=== PATIENT | female | born 1935 | race Caucasian/White ===

== ENCOUNTER 2018-10-24 08:49 | Inpatient (IN) ==
[2018-10-24] MEDS ORDERED: ALBUT/IPRATROP 3MG/0.5MG NEB 3 ML VIAL INH STA (09:03)
[2018-10-24] MEDS ORDERED: FUROSEMIDE 80 MG in SYRINGE 0 ML IV STA (09:18)
[2018-10-24 09:38] LABS: Basophils # (auto) 0.02 K/uL (0-0.2); Basophils % (auto) 0.2 %; Eosinophils # (auto) 0.09 K/uL (0-0.5); Hematocrit (blood only) 30.1 % (37-47); Hemoglobin 8.9 g/dL (12.0-16.0); Immature Granulocytes # (auto) 0.04 K/uL (0.00-0.02); Immature Granulocytes % (auto) 0.5 %; Lymphocytes # (auto) 1.37 K/uL (1.2-3.4); Lymphocytes % (auto) 15.7 %; Mean Corpuscular Hgb Conc 29.6 g/dL (32-36); Mean Corpuscular Volume 93.8 fL (80-100); Mean Platelet Volume 9.8 fL (7.4-10.4); Monocytes # (auto) 0.76 K/uL (0.11-0.59); Monocytes % (auto) 8.7 %; Neutrophils # (auto) 6.43 K/uL (1.4-6.5); Neutrophils % (auto) 73.9 %; Platelet Count 264 K/uL (130-400); RDW Coefficient of Variation 17.8 % (11.5-14.5); RDW Standard Deviation 60.7 fL (36.4-46.3); Red Blood Count 3.21 M/uL (4.2-5.4); White Blood Count 8.71 K/uL (4.8-10.8)
--- NOTE | 2018-10-24 09:47 | XRay Report ---
XR chest 1V portable CLINICAL HISTORY: Dyspnea COMPARISON STUDY: 04/18/2018 FINDINGS: There is complete opacification of the right hemithorax. There is equivocal slight tracheal shift to the right. The findings therefore likely represent a combination of moderate loss and pleur al effusion. A CT scan of the chest is recommended in follow-up. There is mild left lung interstitial thickening. IMPRESSION: Complete opacification of the right hemithorax. A CT scan is recommended in follow-up. Electronically signed by: Festus Palma M.D. 10/24/2018 9:45 AM
[2018-10-24 09:48] LABS: INR 1.2 (0.9-1.1); Partial Thromboplastin Time 28.2 Seconds (21.0-31.0); Prothrombin Time 11.9 Seconds (9.0-12.0)
[2018-10-24 09:57] LABS: Alanine Aminotransferase 29 U/L (12-78); Albumin Level 3.1 gm/dl (3.4-5.0); Aspartate Aminotransferase 20 U/L (15-37); Blood Urea Nitrogen 29 mg/dl (7-18); Calcium 10.3 mg/dl (8.5-10.1); Carbon Dioxide 40 mmol/L (21-32); Chloride 97 mmol/L (98-107); Creatinine Clr Calc Pharmacy 38.3 ml/min; Est GFR (African American) 41.2; Est GFR (Non-African American) 35.5; Glucose 133 mg/dl (70-99); Magnesium 2.9 mg/dl (1.8-2.4); Potassium 3.2 mmol/L (3.5-5.1); Sodium 142 mmol/L (136-145)
[2018-10-24 10:05] LABS: Albumin Globulin Ratio 0.7 (0.9-2); Alkaline Phosphatase 119 U/L (45-117); Bilirubin,Total 0.5 mg/dl (0.2-1); Globulin 4.7 gm/dl (2.5-4.0); Total Protein 7.8 gm/dl (6.4-8.2); Troponin I < 0.015 ng/ml (0-0.045)
[2018-10-24 10:11] LABS: Appearance Urine Clear (Clear); Bilirubin Urine Negative (Negative); Blood Urine Negative (Negative); Color Urine Yellow; Glucose Urine UA Negative (Negative); Ketones Urine Negative (Negative); Leukocyte Esterase Urine Negative (Negative); Nitrite Urine Negative (Negative); Protein Urine Negative (Negative); Specific Gravity Urine 1.016 (1.000-1.030); Urobilinogen Urine Negative (Negative)
--- NOTE | 2018-10-24 10:39 | CT Scan Report ---
CT OF THE CHEST WITHOUT IV CONTRAST CLINICAL HISTORY: CHF, r opacification, BiPAP. COMPARISON STUDY: Chest CT January 18, 2018. Chest radiograph April 18, 2018 and October 24, 2018. TECHNIQUE: Axial images of the chest were obtained without IV contrast. Images were reviewed in the axial, sagittal, and coronal planes. IV contrast was not administered for this examination. Automat ed exposure control was utilized for the study. A dose lowering technique was utilized adhering to t he principles of ALARA. FINDINGS: Right lung collapse is noted with extensive secretions filling the mid to distal aspect of the right mainstem bronchus. Extensive secretions are noted throughout the right bronchial tree whic h fill the right middle lobe and lower lobe bronchi with minimal aeration of the upper lobe bronchi. There is no pneumothorax. Trace left and moderate right pleural effusions are noted. No central obstr ucting mass identified on this unenhanced exam. The heart is moderately enlarged. There is no pericar dial effusion. Moderate coronary artery calcification is noted. Mildly enlarged precarinal lymph node measures 1.6 cm in short axis diameter on image 105 of 281. This has increased in size since exam of January 18, 2018. Mild groundglass opacities and interlobular septal thickening within the left amber ng are noted. There is evidence for previous granulomatous process with calcified thoracic lymph node s and a left upper lobe granuloma. Old left rib fractures are noted. Mild T6 compression deformity is age indeterminate but new since CT of January 18, 2018. Suspected fatty infiltration of the liver is noted. There is trace perihepatic ascites. There is mild nodularity of the liver contour. IMPRESSION: 1. Right lung collapse. This is likely due to mucous plug given extensive secretions throughout the r ight bronchial tree. Compressive atelectasis from a moderate right pleural effusion could also result in right lung collapse however mucous plug is favored. Pulmonary consultation is recommended. 2. Mild pulmonary edema within the left lung. Trace left pleural effusion. 3. Mildly enlarged precarinal lymph node. This is probably reactive however a follow-up chest CT in 3 months to ensure resolution is recommended. 4. Moderate cardiomegaly. Moderate coronary artery calcification. 5. Trace perihepatic ascites. Electronically signed by: Mathew Ortiz M.D. 10/24/2018 10:38 AM
[2018-10-24] MEDS ORDERED: ICU PROTOCOL FOR HYPERGLYCEMIA PRN (11:50)
--- NOTE | 2018-10-24 12:12 | History & Physical Report ---
Date of Service October 24, 2018 Assessment & Plan (1) Acute and chronic respiratory failure ([id number]): (2) Bronchial obstruction: (3) Pleural effusion: This is a 82 yr old F who has a significant PMH of Chronic Respiratory Failure on 5L of O2, Chronic Diastolic CHF, Chronic Afib of OAC due to anemia and falls, HTN, HLD, T2DM, CKD -3, venous stasis dermatitis, iron def anemia who presents to [facility] ED via EMS secondary to hypoxia. Patient presented to ED with acute hypoxic respiratory failure requiring BiPAP therapy. Chest x-ray revealed right hemithorax opacification. CT of chest revealed right lung collapse secondary to extensive mucus plugging, secretions right bronchial tree, moderate right pleural effusion, moderate cardiomegaly, moderate trace perihepatic ascities Lab hemoglobin 8.9, hematocrit 30.1, W BC 8.71, platelet 264. Her sodium was 142, potassium 3.2, BUN 39, creatinine 1.38, glucose 133. Her troponin was negative. BNP was elevated at 4061, procalcitonin WNL. TSH WNL. Case discussed with associate store director/graduate fellow Dr. Moon Admit to ICU Patient underwent diagnostic and therapeutic thoracentesis - 1.1 L removed; as well as bronchoscopy secondary to mucous plugging - DX with tracheobronchomalacia type II which resulted in mucous plugging and obstruction Patient will remain in ICU under care of associate store director, please refer to their consultation for further assessment and treatment plan (4) Acute on chronic diastolic CHF (congestive heart failure): baseline weight 225-250; current weight 251 last echocardiogram 2016 EF 55 to 60%, grade 2 diastolic dysfunction Repeat echocardiogram Consult cardiology -spoke to Dr. Pak Received Lasix IV 80 mg x 1 in ED, monitor response (home regimen is lasix 80mg po bid; metolazone stopped at outpt 1 month ago) Daily weights, strict I's and O's Heart healthy low-sodium diet (5) Atrial fibrillation, chronic: Rate and rhythm controlled on diltiazem Off Coumadin secondary to iron deficiency anemia, positive FOBT Being worked up by GI as outpatient Continue aspirin for now (6) DM type 2 (diabetes mellitus, type 2): A1C 7.4 07/27/18 hold Tradjenta and glimepiride Lantus/NovoLog per protocol (7) CKD (chronic kidney disease) stage 3, GFR 30-59 ml/min: Baseline creatinine 1.1-1.3 BUN/creatinine 29/1.38 today Monitor BMP with diuresis (8) Iron deficiency anemia: Continue iron supplement; patient had IV Venofer infusion on 10/18 following with nephrology Recent upper GI colonoscopy was performed on 10/04 unrevealing for blood loss Per family plan for outpatient internal capsule study to r/o GIB (9) Hypertension: Blood pressure controlled Hold losartan secondary to n.p.o. (10) THIERNO (obstructive sleep apnea): Patient noncompliant with BiPAP, but does wear O2 via NC at 5 L (11) DVT prophylaxis: SCDS/TEDS for now pt with known iron def anemia; s/p recent UGI/Colonoscopy relatively unremarkable and no source of bleed. There is plan for capsule study as outpt will hold off chemical prophylaxis for now -monitor on daily basis Disposition: To be determined, likely back to SNF at discharge. Case management consulted Follow-up: PCP Dr. Garces upon discharge Patient was seen and examined in collaboration with Dr. Cameron, please see addendum Starting 10/25/18 patient will be under the care of Dr. Martins History of Present Illness Chief Complaint: Increasing SOB x 1 week. Primary Care Provider: Marlin Garces MD This is a 82 yr old F who has a significant PMH of Chronic Respiratory Failure on 5L of O2, Chronic Diastolic CHF, Chronic Afib of OAC due to anemia and falls, HTN, HLD, T2DM, CKD -3, venous stasis dermatitis, iron def anemia who presents to [facility] ED via EMS secondary to hypoxia. Patient called son in law this morning to help her with bipap placement. O2 noted to be in 60s; therefore EMS called. History mostly provided by Daughter given pt on bipap. She notes increased weight gain 20-30lbs in past 2-3 months. Around june weight was 225-230. Noted increased weight gain, lower extremity edema, SOB. 2-3 weeks ago patient lasix increased from lasix 80mg in a.m. and 40mg in pm to 80mg bid; however her metolazone was stopped about a month ago given concerns for her renal function. Diuretics adjusted by nephrology Dez. Due to increased weight gain and swelling daughter gave pt dose of 2.5 metolazone Tuesday and additional dose Tuesday. Also noted cough x 1 week, moist but unable to produce. Increasing SOB at rest and with exertion. Pt sleeps in recliner, unable to lie flat due to orthopnea. Physical decline from baseline. Pt ambulates with walker and is able to do simple adls on own; however, family notes increased weakness and fatigue. Of note pt has known iron def anemia. Has had recent work up by Dr. Ruelas. Had UGIB and Colonoscopy 10/04 essentially unremarkable; except for 6 polyps which were removed, diverticulosis and internal hemorrhoids. Had IV Venofer infusion on 10/18. Patient denies any dizziness, lightheaded, f/c/s, chest pain, hemoptysis, n/v/d, abdominal pain, change in bowel habits. According to family has great appetite and has been trying to limit fluid intake due to fluid accumulation. Allergies Allergy/AdvReac Type Severity Reaction Status Date / Time lisinopril Allergy Mild Cough Verified 10/24/18 10:31 PERFUMES AND DALE Allergy Mild allergy Uncoded 10/24/18 10:31 Home Medications Home Medications Medication Instructions Recorded Confirmed Type aspirin [Aspirin Low Dose] 81 mg PO HS 01/18/18 10/24/18 History atorvastatin 40 mg PO HS 01/18/18 10/24/18 History bupropion HCl 300 mg PO QAM 01/18/18 10/24/18 History digoxin 62.5 mcg PO QAM 01/18/18 10/24/18 History docusate sodium [Colace] 100 mg PO BID 01/18/18 10/24/18 History glimepiride 2 mg PO QAM 01/18/18 10/24/18 History furosemide [Lasix] 80 mg PO BID #60 tab 02/08/18 10/24/18 Rx 1 tab PO QAM 03/28/18 10/24/18 History vitamin,calcium,xknowqjs-hjwi-tddbi acid tablet Tradjenta 5 mg PO QAM 09/27/18 10/24/18 History ferrous sulfate 325 mg PO QAM 09/27/18 10/24/18 History magnesium oxide 400 mg PO BID 10/24/18 10/24/18 History albuterol sulfate [Ventolin HFA] 2 puff INHALATION Q8H PRN 30 Days 10/27/18 Rx #1 inhaler amoxicillin-pot clavulanate 1 tab PO BIDM 7 Days #14 tab 10/27/18 Rx metoprolol succinate 25 mg PO BID 30 Days #60 tab 10/27/18 Rx spironolactone 12.5 mg PO DAILY 30 Days #15 tab 10/27/18 Rx Past Med/Surg History Medical History Iron deficiency anemia (Chronic) Vitamin D deficiency (Chronic) Hyperlipidemia (Chronic) Obesity hypoventilation syndrome (Chronic) Renal lesion (Chronic) Ambulatory dysfunction (Chronic) Venous stasis ulcer of right lower extremity (Chronic) Atrial fibrillation, chronic (Chronic) DM type 2 (diabetes mellitus, type 2) (Chronic) Hypertension (Chronic) Hyperparathyroidism (Chronic) Obesity, morbid, BMI 50 or higher (Chronic) Psoriasis (Chronic) Osteoporosis (Chronic) Anxiety (Chronic) Chronic diastolic CHF (congestive heart failure) (Chronic) "echo 04/2015 - moderate LVH, EF 60-65%, grade II diastolic dysfunction" THIERNO (obstructive sleep apnea) (Chronic) oxygen 5L Chronic hypoxemic respiratory failure (Chronic) "on 5 L oxygen continuous" Anemia (Chronic) Heart failure (Chronic) Hypercholesterolemia (Chronic) Blood in stool Low kidney function On home oxygen therapy 5L oxygen at all times Surgical History S/P parathyroidectomy (Chronic) S/P tubal ligation (Chronic) History of appendectomy History of bilateral cataract extraction History of eye surgery bilt after cataract History of parathyroidectomy x2--d/t calcium issue History of thoracentesis History of tooth extraction all upper teeth Family History Father Myocardial infarction, Onset Age: 76 Mother Lung disease Other Heart disease No family history of adverse response to anesthesia Social History Preferred Language: Faroese Communication Ability: Effective Visual Impairment: No Limitations Hearing Ability: Normal Beliefs That Will Affect Care: None marital status: Current Living Situation: Alone Current Living Situation Comment: lives in apt, ambulates with walker, has Daughter and Son in law close by current occupational status: retired Feels Safe at Home: Yes Smoking Status: Former smoker Second Hand Exposure: No Hx Alcohol Use: No Hx Substance Use: No during the past year weight has: decreased > 10 lbs Review of Systems Review of Systems: Unobtainable due to reduced consciousness obtained from daughter who is POA Results & Data Vital Signs (Past 12 Hours) Vital Signs Temp Pulse Pulse Resp BP Pulse Ox 10/24/18 10:31 88 21 121/59 L 96 10/24/18 10:30 71 23 96 10/24/18 10:26 84 19 114/60 96 10/24/18 10:00 80 25 H 85 L 10/24/18 09:40 88 24 100 10/24/18 09:38 88 24 94 10/24/18 09:30 75 24 97 10/24/18 09:11 90 10/24/18 09:02 81 24 85 L 10/24/18 08:58 36.9 C 77 27 H 127/62 90 10/24/18 08:53 84 28 H 127/62 86 L Supervising Physician Co-Signing Physician Notes Pt was seen and examined. Agreed with Lanette TEJADA exam assessment and plan. 82 yr old F with PMH of Chronic Respiratory Failure on 5L of O2, Chronic Diastolic CHF, Chronic Afib of OAC, anemia and falls, HTN, HLD, T2DM, CKD -3, venous stasis dermatitis, iron def anemia who presents to [facility] ED via EMS secondary to hypoxia. As per family pt has been having worsening SOB. CXR on admission showed complete opacification of the right hemithorax. CT chest showed right lung collapse. This is likely due to mucous plug given extensive secretions throughout the right bronchial tree. Compressive atelectasis from a moderate right pleural effusion. Will admit to ICU. Continue BIPAP for now. Case discussed with associate store director who plan to bronch today; Also plan to get a thoracentesis done. Continue monitor closely. Please refer to [facility] PAT documentation for other problems MD Nisha
--- NOTE | 2018-10-24 12:30 | Emergency Department Note ---
Entered by Pallavi Benitez acting as a scribe for History of Present Illness General Chief complaint: Shortness of Breath/Dyspnea Source: patient Mode of arrival: EMS Limitations: no limitations History of Present Illness Provider complaint: SOB Onset (ago): day(s) (a few) Location: chest Pain Consistency: + other (persistent) Quality: + other (SOB) Associated symptoms: + weakness and + other (leg swelling) The patient is an 82 year old female who presents to the ER via EMS with c omplaints of persistent shortness of breath that began a few days ago. The patients son at bedside reports that the patient has a history of CHF and that she does use 5 L of oxygen via bipap at night. He states that she has been doing this since she was hospitalized in March of last year. He notes that she was then discharged and placed on Metolozone and Lasix which caused her to "lose a lot of weight." He reports that the patient was doing very well for 8 months up until about a month ago where they changed these medications out of "concern for her kidneys." He reports that these were then checked and were baseline, but that they still requested she stay on the adjusted medications. He states that since, she has gone downhill and explains that she has gained weight which they suspect is fluid and that she has not been able to get out of bed secondary to weakness. The daughter at bedside also notes that the patients hemoglobin has decreased. She reports that she did have some hematochezia some time ago but that she had an endoscopy performed which was negative. Home Medications Home Medications Medication Instructions Recorded Confirmed Type aspirin [Aspirin Low Dose] 81 mg PO 01/18/18 10/24/18 History atorvastatin 40 mg PO 01/18/18 10/24/18 History bupropion HCl 300 mg PO QA 01/18/18 10/24/18 History digoxin 62.5 mcg PO QAM 01/18/18 10/24/18 History diltiazem HCl 360 mg PO QA 01/18/18 10/24/18 History docusate sodium [Colace] 100 mg PO BID 01/18/18 10/24/18 History glimepiride 2 mg PO QAM 01/18/18 10/24/18 History losartan 25 mg PO QAM 01/18/18 10/24/18 History furosemide [Lasix] 80 mg PO BID #60 tab 02/08/18 10/24/18 Rx metolazone 2.5 mg tablet 2.5 mg PO [id number] tab 03/28/18 10/24/18 History 1 tab PO QAM 03/28/18 10/24/18 History vitamin,calcium,[id number]-rfxlh acid tablet Tradjenta 5 mg PO QAM 09/27/18 10/24/18 History ferrous sulfate 325 mg PO QAM 09/27/18 10/24/18 History magnesium oxide 400 mg PO BID 10/24/18 10/24/18 History Allergies Allergy/AdvReac Type Severity Reaction Status Date / Time lisinopril Allergy Mild Cough Verified 10/24/18 10:31 PERFUMES AND DALE Allergy Mild allergy Uncoded 10/24/18 10:31 Past Med/Surg History Medical History Iron deficiency anemia (Chronic) Vitamin D deficiency (Chronic) Hyperlipidemia (Chronic) Obesity hypoventilation syndrome (Chronic) Renal lesion (Chronic) Ambulatory dysfunction (Chronic) Venous stasis ulcer of right lower extremity (Chronic) Atrial fibrillation, chronic (Chronic) DM type 2 (diabetes mellitus, type 2) (Chronic) Hypertension (Chronic) Hyperparathyroidism (Chronic) Obesity, morbid, BMI 50 or higher (Chronic) Psoriasis (Chronic) Osteoporosis (Chronic) Anxiety (Chronic) Chronic diastolic CHF (congestive heart failure) (Chronic) "echo 04/2015 - moderate LVH, EF 60-65%, grade II diastolic dysfunction" THIERNO (obstructive sleep apnea) (Chronic) oxygen 5L Chronic hypoxemic respiratory failure (Chronic) "on 5 L oxygen continuous" Anemia (Chronic) Heart failure (Chronic) Hypercholesterolemia (Chronic) Blood in stool Low kidney function On home oxygen therapy 5L oxygen at all times Surgical History S/P parathyroidectomy (Chronic) S/P tubal ligation (Chronic) History of appendectomy History of bilateral cataract extraction History of eye surgery bilt after cataract History of parathyroidectomy x2--d/t calcium issue History of thoracentesis History of tooth extraction all upper teeth Family History Father Myocardial infarction, Onset Age: 76 Mother Lung disease Other Heart disease No family history of adverse response to anesthesia Social History Preferred Language: German Communication Ability: Effective Communication Ability Comment: On bipap Visual Impairment: No Limitations Hearing Ability: Normal Ladle Liner Required: No Beliefs That Will Affect Care: None marital status: Current Living Situation: Alone Current Living Situation Comment: lives in apt, ambulates with walker, has Daughter and Son in law close by current occupational status: retired Other Information That Helps Us Care for You: No Feels Safe at Home: Yes Safety Concerns: Feels Safe At This Time Smoking Status: Former smoker Years Smoked: 33 Do You Dip or Chew Tobacco: No Smoking End Date: 1995 Second Hand Exposure: No Tobacco Cessation Education Requested by Patient: No Hx Alcohol Use: No Hx Substance Use: No during the past year weight has: decreased > 10 lbs Review of Systems See HPI for pertinent positives & negatives. and A total of 10 systems reviewed and were otherwise negative Physical Exam Vital Signs Vital Signs - 24 hr 10/24/18 08:53 10/24/18 08:58 10/24/18 09:02 Temperature 36.9 C Temperature Source Oral Sepsis Recent Fever Within 48 Hours No Sepsis New/Unexplained Change in Mental Status No Sepsis Action Taken by Nursing No Action Required Pulse Rate 84 77 81 Pulse Rate [Right Finger] Pulse Rate from SpO2 Sensor 84 85 Pulse Rhythm Irregular Pulse Strength Normal Respiratory Rate 28 H 27 H 24 Respiratory Effort / Characteristics Spontaneous Short of Breath Respiratory Depth Normal Respiratory Pattern Tachypnea Blood Pressure 127/62 127/62 Blood Pressure Mean 83 83 Blood Pressure Position Lying Pulse Oximetry 86 L 90 85 L Oxygen Delivery Method Non-rebreather Non-rebreather Non-rebreather Oxygen Flow Rate 15 15 15 Fraction of Inspired Oxygen 10/24/18 09:11 10/24/18 09:30 10/24/18 09:38 Temperature Temperature Source Sepsis Recent Fever Within 48 Hours Sepsis New/Unexplained Change in Mental Status Sepsis Action Taken by Nursing Pulse Rate 75 88 Pulse Rate [Right Finger] Pulse Rate from SpO2 Sensor 69 Pulse Rhythm Pulse Strength Respiratory Rate 24 24 Respiratory Effort / Characteristics Spontaneous Short of Breath Respiratory Depth Respiratory Pattern Tachypnea Blood Pressure Blood Pressure Mean Blood Pressure Position Pulse Oximetry 90 97 94 Oxygen Delivery Method Non-rebreather Non-rebreather Oxygen Flow Rate 15 15 Fraction of Inspired Oxygen 100 10/24/18 09:40 10/24/18 10:00 10/24/18 10:26 Temperature Temperature Source Sepsis Recent Fever Within 48 Hours Sepsis New/Unexplained Change in Mental Status Sepsis Action Taken by Nursing Pulse Rate 80 84 Pulse Rate [Right Finger] 88 Pulse Rate from SpO2 Sensor 105 H 85 Pulse Rhythm Pulse Strength Respiratory Rate 24 25 H 19 Respiratory Effort / Characteristics Spontaneous Short of Breath Respiratory Depth Respiratory Pattern Blood Pressure 114/60 Blood Pressure Mean 78 Blood Pressure Position Pulse Oximetry 100 85 L 96 Oxygen Delivery Method BiPAP Non-rebreather BiPAP Oxygen Flow Rate 15 Fraction of Inspired Oxygen 10/24/18 10:30 10/24/18 10:31 10/24/18 10:32 Temperature Temperature Source Sepsis Recent Fever Within 48 Hours Sepsis New/Unexplained Change in Mental Status Sepsis Action Taken by Nursing Pulse Rate 71 88 82 Pulse Rate [Right Finger] Pulse Rate from SpO2 Sensor 74 80 79 Pulse Rhythm Pulse Strength Respiratory Rate 23 21 22 Respiratory Effort / Characteristics Respiratory Depth Respiratory Pattern Blood Pressure 121/59 L Blood Pressure Mean 79 Blood Pressure Position Pulse Oximetry 96 96 96 Oxygen Delivery Method BiPAP BiPAP BiPAP Oxygen Flow Rate Fraction of Inspired Oxygen 10/24/18 11:00 10/24/18 11:01 10/24/18 11:24 Temperature Temperature Source Sepsis Recent Fever Within 48 Hours Sepsis New/Unexplained Change in Mental Status Sepsis Action Taken by Nursing Pulse Rate 77 85 76 Pulse Rate [Right Finger] Pulse Rate from SpO2 Sensor 76 75 80 Pulse Rhythm Pulse Strength Respiratory Rate 18 21 23 Respiratory Effort / Characteristics Respiratory Depth Respiratory Pattern Blood Pressure 96/62 L 117/58 L Blood Pressure Mean 73 77 Blood Pressure Position Pulse Oximetry 98 98 97 Oxygen Delivery Method BiPAP BiPAP BiPAP Oxygen Flow Rate Fraction of Inspired Oxygen 10/24/18 11:30 10/24/18 11:31 Temperature Temperature Source Sepsis Recent Fever Within 48 Hours Sepsis New/Unexplained Change in Mental Status Sepsis Action Taken by Nursing Pulse Rate 78 83 Pulse Rate [Right Finger] Pulse Rate from SpO2 Sensor 78 78 Pulse Rhythm Pulse Strength Respiratory Rate 23 20 Respiratory Effort / Characteristics Respiratory Depth Respiratory Pattern Blood Pressure 111/66 Blood Pressure Mean 81 Blood Pressure Position Pulse Oximetry 97 97 Oxygen Delivery Method BiPAP BiPAP Oxygen Flow Rate Fraction of Inspired Oxygen Vital signs reviewed. General: Morbidly obese, chronically ill appearing. Noted to be hypoxic on oxygen mask. HEENT: No scleral icterus, PERRLA, neck supple. Atraumatic. Cardiovascular: Regular rate and rhythm, no extra sounds. Pulmonary: Diminished breath sound on the right with crackles noted on the left. Decreased respiratory effort. Abdomen: Soft, nontender, nondistended, positive bowel sounds. Musculoskeletal: Atraumatic, significant pitting edema to the bilateral lower extremities. Neurologic: Patient is somnolent but arousable. Skin: Warm, dry, no rash Course 0917: Past medical records reviewed. The patient was evaluated in room B10. A complete history and physical examination was performed. 1044: I discussed the patient's case with Lanette Andre PA-C - [facility] Hospitalist. She and Dr. Cameron will evaluate the patient for further management. 1049: I discussed the patient's case with Dr. Villarreal - [facility]. He accepted the patient into his care. Administered Medications Albuterol (Ventolin 0.5% 2.5mg/0.5ml) 2.5 mg NEB Q6R [facility]IDY Stop: 11/24/18 19:59 Last Admin: 10/25/18 18:17 Dose: 2.5 mg Documented by: [id number] Bupropion HCl (Wellbutrin-Xl) 300 mg PO QAM [facility] Stop: 11/24/18 08:59 Last Admin: 10/25/18 10:03 Dose: 300 mg Documented by: [id number] Digoxin (Lanoxin) 0.0625 mg PO QAM [facility] Stop: 11/24/18 08:59 Last Admin: 10/25/18 10:03 Dose: 0.0625 mg Documented by: [id number] Docusate Sodium (Colace) 100 mg PO BID [facility] Stop: 11/24/18 08:59 Last Admin: 10/25/18 10:06 Dose: 100 mg Documented by: [id number] Ferrous Sulfate (Feosol) 325 mg PO QAM [facility] Stop: 11/24/18 08:59 Last Admin: 10/25/18 10:03 Dose: 325 mg Documented by: [id number] Heparin Sodium (Porcine) (Heparin Sodium (Porcine)) 5,000 units SQ Q12 [facility] Stop: 11/24/18 08:59 Last Admin: 10/25/18 10:06 Dose: 5,000 units Documented by: [id number] Cosigned by: [id number] Insulin Aspart (Novolog Flexpen) 0 units SC ACHS [facility] Stop: 11/24/18 11:29 Last Admin: 10/25/18 17:34 Dose: 2 units Documented by: [id number] Cosigned by: [id number] Admin: 10/25/18 12:41 Dose: Not Given Documented by: [id number] Cosigned by: [id number] Insulin Glargine (Lantus Solostar Pen) 0 units SC BID [facility] Stop: 11/23/18 20:59 Last Admin: 10/25/18 08:14 Dose: Not Given Documented by: [id number] Cosigned by: [id number] Admin: 10/24/18 21:52 Dose: 5 units Documented by: [id number] Cosigned by: [id number] Discontinued Medications Albuterol (Duoneb) 12 ml INH ONE STA Stop: 10/24/18 09:04 Last Admin: 10/24/18 09:09 Dose: 12 ml Documented by: [id number] Diltiazem HCl (Cardizem Cd) 360 mg PO QAM [facility] Stop: 11/24/18 08:59 Last Admin: 10/25/18 10:03 Dose: 360 mg Documented by: [id number] Fentanyl Citrate (Fentanyl Citrate) Confirm Administered Dose 100 mcg .ROUTE .STK-MED ONE Stop: 10/24/18 13:02 Last Increment: 10/24/18 13:27 Dose: 50 mcg Documented by: [id number] Furosemide (Lasix) 20 mg PO BID17 [facility] Stop: 11/24/18 08:59 Last Admin: 10/25/18 17:33 Dose: 20 mg Documented by: [id number] Admin: 10/25/18 10:03 Dose: 20 mg Documented by: [id number] Furosemide 80 mg/ Syringe 8 mls @ 4 mls/min IV NOW STA Stop: 10/24/18 09:19 Last Admin: 10/24/18 09:41 Dose: 4 mls/min Documented by: [id number] Potassium Chloride (K Berto / Wtr) 10 meq in 100 mls @ 100 mls/hr IV Q1H HEIDY Stop: 10/24/18 16:14 Last Infusion: 10/24/18 17:20 Dose: 0 mls/hr Documented by: [id number] Admin: 10/24/18 15:52 Dose: 100 mls/hr Documented by: [id number] Infusion: 10/24/18 15:52 Dose: 100 mls/hr Documented by: [id number] Admin: 10/24/18 14:52 Dose: 100 mls/hr Documented by: [id number] Furosemide 20 mg/ Syringe 2 mls @ 4 mls/min IV TODAY@1810 ONE Stop: 10/25/18 18:11 Last Admin: 10/25/18 19:40 Dose: 4 mls/min Documented by: [id number] Insulin Aspart (Novolog Flexpen) 0 units SC Q6 [facility]Y Stop: 11/23/18 13:14 Last Admin: 10/25/18 08:15 Dose: 4 units Documented by: [id number] Cosigned by: [id number] Admin: 10/25/18 06:26 Dose: Not Given Documented by: [id number] Cosigned by: [id number] Admin: 10/25/18 00:53 Dose: Not Given Documented by: [id number] Cosigned by: [id number] Admin: 10/24/18 17:58 Dose: 1 units Documented by: [id number] Cosigned by: [id number] Admin: 10/24/18 14:12 Dose: 2 units Documented by: [id number] Cosigned by: [id number] Midazolam HCl (Versed) Confirm Administered Dose 6 mg .ROUTE .STK-MED ONE Stop: 10/24/18 13:01 Last Increment: 10/24/18 13:29 Dose: 2 mg Documented by: [id number] Perflutren Lipid Microsphere (Definity) 2 ml IV ONCE ONE Stop: 10/24/18 15:54 Last Admin: 10/24/18 15:54 Dose: 2 ml Documented by: [id number] Potassium Chloride (Klor-Con Pwd) 40 meq PO ONCE ONE Stop: 10/25/18 08:16 Last Admin: 10/25/18 10:01 Dose: 40 meq Documented by: [id number] Medical Decision Making Differential Diagnosis Differential diagnoses includes: pneumonia, bronchitis, COPD/Asthma exacerbation, pneumothorax, pulmonary embolism, congestive heart failure, and ac maliha coronary syndrome amongst others. Medical Records Attestation: I reviewed the patient's medical records. Home Medications Current Medication List: was personally reviewed by me Laboratory Data Attestation: I reviewed the patient's lab results. Result diagrams: 10/25/18 04:04 10/25/18 04:04 Lab Results 10/24/18 10/24/18 10/24/18 Range/Units 09:15 09:15 09:15 WBC 8.71 (4.8-10.8) K/uL RBC 3.21 L (4.2-5.4) M/uL Hgb 8.9 L (12.0-16.0) g/dL Hct 30.1 L (37-47) % MCV 93.8 (80-100) fL MCH 27.7 (25-34) pg MCHC 29.6 L (32-36) g/dL RDW Std Deviation 60.7 H (36.4-46.3) fL RDW Coeff of Dionne 17.8 H (11.5-14.5) % Plt Count 264 (130-400) K/uL MPV 9.8 (7.4-10.4) fL Immature Gran % (Auto) 0.5 % Neut % (Auto) 73.9 % Lymph % (Auto) 15.7 % Carter % (Auto) 8.7 % Eos % (Auto) 1.0 % Baso % (Auto) 0.2 % Immature Gran # (Auto) 0.04 H (0.00-0.02) K/uL Neut # (Auto) 6.43 (1.4-6.5) K/uL Lymph # (Auto) 1.37 (1.2-3.4) K/uL Carter # (Auto) 0.76 H (0.11-0.59) K/uL Eos # (Auto) 0.09 (0-0.5) K/uL Baso # (Auto) 0.02 (0-0.2) K/uL PT 11.9 (9.0-12.0) Seconds INR 1.2 H (0.9-1.1) APTT 28.2 (21.0-31.0) Seconds PTT Ratio 1.0 Sodium 142 (136-145) mmol/L Potassium 3.2 L (3.5-5.1) mmol/L Chloride 97 L (98-107) mmol/L Carbon Dioxide 40 H (21-32) mmol/L Anion Gap 5.0 (3-11) BUN 29 H (7-18) mg/dl Creatinine 1.38 H (0.6-1.2) mg/dl Est Cr Clr Drug Dosing 38.3 ml/min Est GFR ( Amer) 41.2 Est GFR (Non-Af Amer) 35.5 BUN/Creatinine Ratio 21.0 H (10-20) Glucose 133 H (70-99) mg/dl Calcium 10.3 H (8.5-10.1) mg/dl Magnesium 2.9 H (1.8-2.4) mg/dl Total Bilirubin 0.5 (0.2-1) mg/dl AST 20 (15-37) U/L ALT 29 (12-78) U/L Alkaline Phosphatase 119 H (45-117) U/L Troponin I < 0.015 (0-0.045) ng/ml NT-Pro-B Natriuret Pep (0-1800) pg/ml Total Protein 7.8 (6.4-8.2) gm/dl Albumin 3.1 L (3.4-5.0) gm/dl Globulin 4.7 H (2.5-4.0) gm/dl Albumin/Globulin Ratio 0.7 L (0.9-2) Procalcitonin (0-0.5) ng/ml Urine Color Urine Appearance (Clear) Urine pH (4.5-7.5) Ur Specific [place] (1.000-1.030) Urine Protein (Negative) Urine Glucose (UA) (Negative) Urine Ketones (Negative) Urine Blood (Negative) Urine Nitrite (Negative) Urine Bilirubin (Negative) Urine Urobilinogen (Negative) Ur Leukocyte Esterase (Negative) 10/24/18 10/24/18 10/24/18 Range/Units 09:15 09:15 09:50 WBC (4.8-10.8) K/uL RBC (4.2-5.4) M/uL Hgb (12.0-16.0) g/dL Hct (37-47) % MCV (80-100) fL MCH (25-34) pg MCHC (32-36) g/dL RDW Std Deviation (36.4-46.3) fL RDW Coeff of Dionne (11.5-14.5) % Plt Count (130-400) K/uL MPV (7.4-10.4) fL Immature Gran % (Auto) % Neut % (Auto) % Lymph % (Auto) % Carter % (Auto) % Eos % (Auto) % Baso % (Auto) % Immature Gran # (Auto) (0.00-0.02) K/uL Neut # (Auto) (1.4-6.5) K/uL Lymph # (Auto) (1.2-3.4) K/uL Carter # (Auto) (0.11-0.59) K/uL Eos # (Auto) (0-0.5) K/uL Baso # (Auto) (0-0.2) K/uL PT (9.0-12.0) Seconds INR (0.9-1.1) APTT (21.0-31.0) Seconds PTT Ratio Sodium (136-145) mmol/L Potassium (3.5-5.1) mmol/L Chloride (98-107) mmol/L Carbon Dioxide (21-32) mmol/L Anion Gap (3-11) BUN (7-18) mg/dl Creatinine (0.6-1.2) mg/dl Est Cr Clr Drug Dosing ml/min Est GFR ( Amer) Est GFR (Non-Af Amer) BUN/Creatinine Ratio (10-20) Glucose (70-99) mg/dl Calcium (8.5-10.1) mg/dl Magnesium (1.8-2.4) mg/dl Total Bilirubin (0.2-1) mg/dl AST (15-37) U/L ALT (12-78) U/L Alkaline Phosphatase (45-117) U/L Troponin I (0-0.045) ng/ml NT-Pro-B Natriuret Pep 4061 H (0-1800) pg/ml Total Protein (6.4-8.2) gm/dl Albumin (3.4-5.0) gm/dl Globulin (2.5-4.0) gm/dl Albumin/Globulin Ratio (0.9-2) Procalcitonin 0.10 (0-0.5) ng/ml Urine Color Yellow Urine Appearance Clear (Clear) Urine pH 5.0 (4.5-7.5) Ur Specific [place] 1.016 (1.000-1.030) Urine Protein Negative (Negative) Urine Glucose (UA) Negative (Negative) Urine Ketones Negative (Negative) Urine Blood Negative (Negative) Urine Nitrite Negative (Negative) Urine Bilirubin Negative (Negative) Urine Urobilinogen Negative (Negative) Ur Leukocyte Esterase Negative (Negative) Imaging Data Radiologist's Impression: Radiology results as stated below per my review and the radiologist's interpretation: XR chest 1V portable CLINICAL HISTORY: Dyspnea COMPARISON STUDY: 04/18/2018 FINDINGS: There is complete opacification of the right hemithorax. There is equivocal slight tracheal shift to the right. The findings therefore likely represent a combination of moderate loss and pleural effusion. A CT scan of the chest is recommended in follow-up. There is mild left lung interstitial thickening. IMPRESSION: Complete opacification of the right hemithorax. A CT scan is rec ommended in follow-up. Electronically signed by: Festus Palma M.D. 10/24/2018 9:45 AM ECG Data Attestation: I personally reviewed and interpreted this ECG as follows: Indication: SOB/dyspnea Rate (beats per minute): 79 Rhythm: atrial fibrillation Findings: + other (repolarization abnormality, QTC of 421) and + RBBB; no ectopy Blood Pressure Blood Pressure Findings: Normal blood pressure Blood Pressure Disposition: did not require urgent referral MDM Narrative This patient was evaluated and appeared to be in no significant distress. IV access was obtained and laboratory work was drawn. The patient was placed on hall monitor and found to be in a rate controlled atrial fibrillation. Initially the patient was felt to be in congestive heart failure with a likely prolonged effusion, chest x-ray reveals complete whiteout of the right hemithora x. CT imaging was recommended in follow-up and reveals a collapsed lung secondary to bronchial mucous plugging. Patient did well with BiPAP and was given 80 mg of IV Lasix. Patient did receive an hour-long DuoNeb treatment. Laboratory work is fairly reassuring with the exception of elevated bicarb. Patient's vital signs have remained fairly stable, blood pressure has been intermittently low. Patient's case was discussed with Dr. Villarreal of the negative spotter service. He has agreed to evaluate the patient for bronchoscopy. The hospitalist service was consulted and will evaluate the patient for admission. Impression & Plan Respiratory failure, CHF (congestive heart failure), Bronchial obstruction Critical Care Time Critical Care Time: Yes Total Critical Care Time: 45 I have personally spent 45 minutes of critical care time in the direct m anagement of this patient. This includes bedside care, interpretation of diagnostic studies, and testing, discussion with consultants, patient, and family members, and other required patient management activities. These 45 minutes are in excess of all separately billable procedures. Discharge Plan Visit Data *Final* Discharge Date/Time: 10/24/18 12:20 Chief Complaint: Shortness of Breath/Dyspnea ED Provider: Katerin Mckenzie Discharge Problem: Respiratory failure, CHF (congestive heart failure), Bronchial obstruction Patient Disposition: Admitted As Inpatient Discharge Instructions Interventions: ED Discharge Assessment Last Done: 10/24/18 12:20 Discharge Problem: CHF (congestive heart failure) Qualifiers: Heart failure type: unspecified The scribe's documentation has been prepared under my direction and personally reviewed by me in its entirety. I confirm that the note above accurately reflects all work, treatment, procedures, and medical decision making performed by me.
[2018-10-24] MEDS ORDERED: ACETAMINOPHEN 325 MG TAB PO PRN (12:56)
[2018-10-24] MEDS ORDERED: DEXTROSE 50% 50 ML SYRINGE IV PRN (12:56)
[2018-10-24] MEDS ORDERED: CARBOHYDRATES FOR HYPOGLYCEMIA PO PRN (12:56)
[2018-10-24] MEDS ORDERED: GLUCOSE 10 TABS/TUBE PO PRN (12:56)
[2018-10-24] MEDS ORDERED: POLYETHYLENE (MIRALAX) 17 GM PACK PO PRN (12:56)
[2018-10-24] MEDS ORDERED: GLUCAGON FOR INJ 1 MG VIAL SQ PRN (12:56)
[2018-10-24] MEDS ORDERED: ONDANSETRON INJ 2 MG/ML 2 ML VIAL IV PRN (12:56)
[2018-10-24] MEDS ORDERED: GLUCOSE 40% GEL 15 GM TUBE PO PRN (12:56)
[2018-10-24] MEDS ORDERED: MIDAZOLAM HCL 1 MG/ML 2ML VIAL ONE (13:00)
[2018-10-24] MEDS ORDERED: fentaNYL citrate 100 MCG/2 ML VIAL ONE (13:01)
--- NOTE | 2018-10-24 14:00 | Critical Care Consultation ---
Date of Consultation October 24, 2018 Assessment & Plan (1) Bronchial obstruction: Impression: 1. Acute hypoxic respiratory failure secondary to occluded airways and expressing compression with pleural effusion. 2. Recurrent pleural effusion right-sided. 3. 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 4. History of CHF. 5. Obstructive sleep apnea. Morbid obesity. Plan: 1. Admit the patient to the ICU. 2. Perform thoracentesis at the bedside, 1100 mL of fluid was removed. 3. Bronchoscopy was done also at the bedside under conscious sedation, noted large amount of mucoid impaction occluding the right main bronchus and its branches. 4. All the mucus was removed and suctioned to clear, specimen was sent for culture. 5. Chest x-rays pending. 6. Fluid analysis. 7. BiPAP 15/8 with FiO2 via in-line using a full facemask. Postprocedure. 8. Fentanyl and Versed was used for the procedure. 9. Discussed with the family in details. 10. Keep the patient n.p.o. for now until she is fully recovered from the procedure. 11. Appreciate the assistance of respiratory therapy and nursing staff. 12. Case discussed with the family in details, all their questions been answered. Critical care time spent with the patient was 45 minutes excluding procedure time. History of Present Illness Reason for Consultation: Acute respiratory failure Requesting Physician: Dr. Mckenzie Attending Physician: Dennis Martins MD History of Present Illness Dear Dr. Mckenzie: Thank you for the kind referral Mrs. Guerra to critical care service. This is 82-year-old female with a history of congestive heart failure, COPD, parathyroidectomy, chronic anemia, A. fib not anticoagulated, diabetic, hypertension, history of psoriasis, presented to the hospital with increasing shortness of breath, she does have also morbid obesity as well as obstructive sleep apnea. The patient was found to have mirella out right lung entirely, she was placed on high flow oxygen and was admitted to the hospital for further management. The patient is a full code. The patient does not ambulate very much. She felt the shortness of breath only for the past few days. She did have similar episode back in August 2018 where she had to use BiPAP. The patient did not have atelectasis of her right lung at that time but she did have pleural effusion that appeared to be chronic. She denies any chest pain, no neck pain, no recent dysphagia or aspiration, denies any heartburn, no nausea or vomiting as well. She tolerate oral intake. She was dentures and only in the upper maxillary teeth. The patient uses oxygen only at 4 L but she is not faith about it. She was prescribed before bronchodilators also she has not been using them on a regular basis. Her past medical history as mentioned above, family history is not obtainable at this point. The patient is ex-smoker quit over 15 years ago. She has more than 89-giao-poyr history of smoking. The patient did not have any industrial exposure. No surgical history was reported on the chest cavity. Allergies Allergy/AdvReac Type Severity Reaction Status Date / Time lisinopril Allergy Mild Cough Verified 10/24/18 10:31 PERFUMES AND DALE Allergy Mild allergy Uncoded 10/24/18 10:31 Home Medications Home Medications Medication Instructions Recorded Confirmed Type aspirin [Aspirin Low Dose] 81 mg PO HS 01/18/18 10/24/18 History atorvastatin 40 mg PO HS 01/18/18 10/24/18 History bupropion HCl 300 mg PO QAM 01/18/18 10/24/18 History digoxin 62.5 mcg PO QAM 01/18/18 10/24/18 History diltiazem HCl 360 mg PO QAM 01/18/18 10/24/18 History docusate sodium [Colace] 100 mg PO BID 01/18/18 10/24/18 History glimepiride 2 mg PO QAM 01/18/18 10/24/18 History losartan 25 mg PO QAM 01/18/18 10/24/18 History furosemide [Lasix] 80 mg PO BID #60 tab 02/08/18 10/24/18 Rx metolazone 2.5 mg tablet 2.5 mg PO 3XWK tab 03/28/18 10/24/18 History 1 tab PO QAM 03/28/18 10/24/18 History vitamin,calcium,wmnbrccy-fowh-ltagq acid tablet Tradjenta 5 mg PO QAM 09/27/18 10/24/18 History ferrous sulfate 325 mg PO QAM 09/27/18 10/24/18 History magnesium oxide 400 mg PO BID 10/24/18 10/24/18 History Patient History Medical History Iron deficiency anemia (Chronic) Vitamin D deficiency (Chronic) Hyperlipidemia (Chronic) Obesity hypoventilation syndrome (Chronic) Renal lesion (Chronic) Ambulatory dysfunction (Chronic) Venous stasis ulcer of right lower extremity (Chronic) Atrial fibrillation, chronic (Chronic) DM type 2 (diabetes mellitus, type 2) (Chronic) Hypertension (Chronic) Hyperparathyroidism (Chronic) Obesity, morbid, BMI 50 or higher (Chronic) Psoriasis (Chronic) Osteoporosis (Chronic) Anxiety (Chronic) Chronic diastolic CHF (congestive heart failure) (Chronic) "echo 04/2015 - moderate LVH, EF 60-65%, grade II diastolic dysfunction" THIERNO (obstructive sleep apnea) (Chronic) oxygen 5L Chronic hypoxemic respiratory failure (Chronic) "on 5 L oxygen continuous" Anemia (Chronic) Heart failure (Chronic) Hypercholesterolemia (Chronic) Blood in stool Low kidney function On home oxygen therapy 5L oxygen at all times Surgical History S/P parathyroidectomy (Chronic) S/P tubal ligation (Chronic) History of appendectomy History of bilateral cataract extraction History of eye surgery bilt after cataract History of parathyroidectomy x2--d/t calcium issue History of thoracentesis History of tooth extraction all upper teeth Family History Father Myocardial infarction, Onset Age: 76 Mother Lung disease Other Heart disease No family history of adverse response to anesthesia Social History Preferred Language: Mongolian Communication Ability: Effective Communication Ability Comment: On bipap Visual Impairment: No Limitations Hearing Ability: Normal [place] Operator Required: No Beliefs That Will Affect Care: None marital status: Current Living Situation: Alone Current Living Situation Comment: lives in apt, ambulates with walker, has Daughter and Son in law close by current occupational status: retired Other Information That Helps Us Care for You: No Feels Safe at Home: Yes Safety Concerns: Feels Safe At This Time Smoking Status: Former smoker Years Smoked: 33 Do You Dip or Chew Tobacco: No Smoking End Date: 1995 Second Hand Exposure: No Tobacco Cessation Education Requested by Patient: No Hx Alcohol Use: No Hx Substance Use: No during the past year weight has: decreased > 10 lbs Review of Systems Review of Systems: Review of system otherwise was unremarkable 14 systems be reviewed, except for the above mentioned in the first section. Physical Exam Physical Exam: Vital signs are stable except for O2 sat of 86%. S1-S2, distant breath sounds on the right, abdomen is obese but benign, no edema in the periphery, multiple skin break mainly in the coccyx area, neurologically she appears to be intact, she is edentulous on the maxillary teeth, neck motion with severe kyphosis and minimal neck extension. Results & Data Vital Signs (Past 12 Hours) Vital Signs Temp Pulse Pulse Resp BP BP Pulse Ox 10/24/18 13:06 36.7 C 90 28 H 135/64 87 L 10/24/18 12:01 79 23 98 10/24/18 12:00 77 18 10/24/18 11:31 83 20 111/66 97 10/24/18 11:30 78 23 97 10/24/18 11:24 76 23 117/58 L 97 10/24/18 11:01 85 21 96/62 L 98 10/24/18 11:00 77 18 98 10/24/18 10:32 82 22 96 10/24/18 10:31 88 21 121/59 L 96 10/24/18 10:30 71 23 96 10/24/18 10:26 84 19 114/60 96 10/24/18 10:00 80 25 H 85 L 10/24/18 09:40 88 24 100 10/24/18 09:38 88 24 94 10/24/18 09:30 75 24 97 10/24/18 09:11 90 10/24/18 09:02 81 24 85 L 10/24/18 08:58 36.9 C 77 27 H 127/62 90 10/24/18 08:53 84 28 H 127/62 86 L Laboratory Results Her labs were reviewed personally as well as her imaging. Diagnostic Findings Chest x-ray and CAT scan of the chest both showed mucoid impaction occluding the right main bronchus and bronchus intermedius and there is significant tracheomalacia also noted. Pleural effusion that has been persistent on 2 CAT scans from August 2018 and on this admission. PG Care Time/CCT Critical Care Time: Yes Total Critical Care Time: 45
--- NOTE | 2018-10-24 14:05 | Procedure Note ---
Procedure Note Date of Service October 24, 2018 Note The patient underwent bronchoscopy due to atelectasis of the right lung. Consent obtained from the daughter and the patient, risk and benefit explained details, agreed to the procedure. The patient had the procedure done in room 4 in the ICU. The patient was already monitored throughout the entire procedure with ICU style of monitoring. Timeout was performed by the nursing staff. The patient received 10 mL of 2% lidocaine neb prior to the procedure. The patient received total of 50 mics of fentanyl and 2 mg of Versed for the procedure. Using a bite block, the bronchoscope initially using ambu bronchoscope which was poorly compliant with her airways, and switched to Olympus 180 bronc. The bronchoscope passed through the bite-block, and the following findings: 1. Oral airways appears normal. 2. Vocal cords are mobile. 3. Secretions were noted at the aperture of the vocal cord. 4. The bronchoscope passed through the vocal cord and noted tracheal bronchomalacia, type II, extending from the mid trachea to the bronchus int ermedius. 5. Large amount of mucus plugging occluding completely the right main bronchus and bronchus intermedius with its branches. 6. Lidocaine injectable up to 10 mL was used. 1% concentration. 7. Allocates of normal saline were used up to 20 mL throughout the entire procedure. 8. Suction was done from all lobar and segmental bronchus. 9. Complete clearance, edematous mucosa, no endobronchial lesion, minimal hemorrhage from dislodgment of mucoid impaction. 10. The bronchoscope was removed entirely, and the patient was placed on the BiPAP for alveoli recruitment. Tolerated the procedure well, O2 saturation now is 99%. Thank you for all involved. Coding CPT Codes Pulmonary/Thoracic - Pulmonary and Thoracic: Dx bronchoscopy/wash ([id number])
--- NOTE | 2018-10-24 14:07 | XRay Report ---
XR chest 1V portable CLINICAL HISTORY: post thoracentesis and bronchoscopy COMPARISON STUDY: 10/24/2018 FINDINGS: The heart is enlarged. There is aortic tortuosity/ectasia. There is splaying of the lamine. There is markedly improved right lung aeration. There is a small right pleural effusion. There is di ffuse interstitial thickening. There is no pneumothorax.[ IMPRESSION: No pneumothorax status post bronchoscopy and thoracentesis. Marked interval improvement i n the aeration of the right lung Electronically signed by: Festus Palma M.D. 10/24/2018 2:05 PM
--- NOTE | 2018-10-24 14:07 | Post Anesthesia Assessment ---
Date of Service October 24, 2018 Post Sedation Assessment Vital Signs Temp Pulse Pulse Pulse Resp BP BP 10/24/18 13:06 36.7 C 90 28 H 135/64 10/24/18 12:36 36.7 C 97 H 28 H 135/64 10/24/18 12:01 79 23 10/24/18 12:00 77 18 10/24/18 11:31 83 20 111/66 10/24/18 11:30 78 23 10/24/18 11:24 76 23 117/58 L 10/24/18 11:01 85 21 96/62 L 10/24/18 11:00 77 18 10/24/18 10:32 82 22 10/24/18 10:31 88 21 121/59 L 10/24/18 10:30 71 23 10/24/18 10:26 84 19 114/60 10/24/18 10:00 80 25 H 10/24/18 09:40 88 24 10/24/18 09:38 88 24 10/24/18 09:30 75 24 10/24/18 09:11 10/24/18 09:02 81 24 10/24/18 08:58 36.9 C 77 27 H 127/62 10/24/18 08:53 84 28 H 127/62 Pulse Ox 10/24/18 13:06 87 L 10/24/18 12:36 86 L 10/24/18 12:01 98 10/24/18 12:00 10/24/18 11:31 97 10/24/18 11:30 97 10/24/18 11:24 97 10/24/18 11:01 98 10/24/18 11:00 98 10/24/18 10:32 96 10/24/18 10:31 96 10/24/18 10:30 96 10/24/18 10:26 96 10/24/18 10:00 85 L 10/24/18 09:40 100 10/24/18 09:38 94 10/24/18 09:30 97 10/24/18 09:11 90 10/24/18 09:02 85 L 10/24/18 08:58 90 10/24/18 08:53 86 L Post Sedation Plan On clinical assessment, the patient appears to have tolerated the sedation without complications. Patient is recovering as anticipated. Patient will continue to be monitored by nursing and may be discharged when sedation discharge criteria are met per below protocol. Upon Completions of procedure and additional 15 minutes continue every 5 minute vital signs and the P.A.R. score; then discharge to a Phase I or Fast Track to Phase II per the following guidelines: * Discharge Patient to appropriate Phase II area if PAR is 8 or greater or return to pre- procedure baseline. The post - procedure orders will be as directed. * If PAR score is less than 8 or not return to pre-procedure baseline then patient will follow Phase I monitoring till PAR is reached for Phase II. The Phase I may be done in procedure room or may call to secure a Phase I area. * If naloxone or flumazenil are used for reversal, hold in Phase I for continued monitoring from when last reversal dose was given for a minimum of 60 minutes or longer pending the nurse and/or physician discretion of patient condition before discharge to Phase II. Please call the Sedation Physician to re-evaluate and complete post-note for discharge to Phase II area. Do NOT discharge from procedure sedation or Phase 1 until post- sedation evaluation note is complete by procedure /sedation MD Sedation Discharge Instructions to be given to the patient at discharge to home.
--- NOTE | 2018-10-24 14:08 | Pre Anesthesia Assessment ---
Date of Service October 24, 2018 Pre Sedation Assessment Vital Signs Temp Pulse Pulse Pulse Resp BP BP 10/24/18 13:06 36.7 C 90 28 H 135/64 10/24/18 12:36 36.7 C 97 H 28 H 135/64 10/24/18 12:01 79 23 10/24/18 12:00 77 18 10/24/18 11:31 83 20 111/66 10/24/18 11:30 78 23 10/24/18 11:24 76 23 117/58 L 10/24/18 11:01 85 21 96/62 L 10/24/18 11:00 77 18 10/24/18 10:32 82 22 10/24/18 10:31 88 21 121/59 L 10/24/18 10:30 71 23 10/24/18 10:26 84 19 114/60 10/24/18 10:00 80 25 H 10/24/18 09:40 88 24 10/24/18 09:38 88 24 10/24/18 09:30 75 24 10/24/18 09:11 10/24/18 09:02 81 24 10/24/18 08:58 36.9 C 77 27 H 127/62 10/24/18 08:53 84 28 H 127/62 Pulse Ox 10/24/18 13:06 87 L 10/24/18 12:36 86 L 10/24/18 12:01 98 10/24/18 12:00 10/24/18 11:31 97 10/24/18 11:30 97 10/24/18 11:24 97 10/24/18 11:01 98 10/24/18 11:00 98 10/24/18 10:32 96 10/24/18 10:31 96 10/24/18 10:30 96 10/24/18 10:26 96 10/24/18 10:00 85 L 10/24/18 09:40 100 10/24/18 09:38 94 10/24/18 09:30 97 10/24/18 09:11 90 10/24/18 09:02 85 L 10/24/18 08:58 90 10/24/18 08:53 86 L Pre-Sedation Airway Assessment Smoking Status: Former smoker Hx Sleep Apnea: Yes Short, Thick Neck: Yes Thyromental Distance: > or= 3.5 Finger Breadths Oral Cavity: + Dentures Mallampati Class: II ASA: ASA2 NPO Status Date of Last Intake of Fluids: 10/23/18 Time of Last Intake of Fluids: 23:59 Date of Last Intake of Solid Food: 10/23/18 Time of Last Intake of Solid Foods: 19:00 Notes The planned sedation has been discussed with the patient. Informed Consent was obtained. I have identified the patient, determined the appropriateness of sedation and have assessed the patient immediately prior to the procedure. All medicine(s) and interventions are by my order.
[2018-10-24] MEDS: INSULIN ASPART 100 UNITS/ML 3 ML PEN SC SCH ×2 (14:12→17:58)
[2018-10-24] MEDS: POTASSIUM CHLORIDE / WTR 10 MEQ/100 ML PLCT IV SCH ×2 (14:52→15:52)
--- NOTE | 2018-10-24 15:25 | Procedure Note ---
Procedure Note Date of Service October 24, 2018 Note Thoracentesis was done at the bedside, due to large pleural effusion on the right side. Consent obtained from the patient, risk and benefit explained details, with the presence of her daughter, agreed to the procedure. The patient was placed in upright position, under ultrasound guidance, at the level of the eighth intercostal space posteriorly, noted the pleural fluid more than 2 cm in thickness, the patient skin was prepped with chlorhexidine under strict sterile field, injected with 10 mL of 1% lidocaine, using scalpel and Seldinger technique, the catheter was introduced to the right pleural cavity, total amount of 1100 mL of dark yellow fluid was removed, the catheter was removed and pressure applied at the insertion site for 2 minutes, tolerated the procedure very well, no immediate complication, chest x-ray was reviewed without evidence of pneumothorax. Thank you for the assistance of nursing staff. Coding CPT Codes Pulmonary/Thoracic - Pulmonary and Thoracic: Thoracentesis w imaging ([id number])
[2018-10-24] MEDS ORDERED: PERFLUTREN LIPID MICROSPHERE (DEFINITY) IV ONE (15:53)
[2018-10-24 16:52] LABS: Albumin Pleural Fluid 1.6 g/dl
[2018-10-24 16:58] LABS: Total Protein Pleural Fluid 2.8 g/dl
[2018-10-24 17:46] LABS: Appearance Pleural Fluid CLEAR; Color Pleural Fluid YELLOW; Mononuclear WBC Pleural 54.2 %; Polynuclear WBC Pleural 45.8 %; RBC Pleural Fluid (A) < 3000 /uL; Source Pleural Fluid RIGHT LUNG; WBC Pleural Fluid (A) 65 /uL
--- NOTE | 2018-10-24 17:53 | Cardiology Consultation ---
Date of Consultation October 24, 2018 Assessment & Plan (1) Acute on chronic diastolic CHF (congestive heart failure): Patient has initially responded to thoracentesis and bronchoscopy removing mucous plug. Clinical history notable for gradual increase in the abdominal bloating edema multifactorial etiology with recent reduction in diuretic dosing (discontinuation of metolazone), worsening anemia Course was complicated by underlying medical issues including hypoventilation syndrome renal insufficiency chronic respiratory issues. Now with newly defined borderline severe aortic stenosis We will expect patient to require resumption of diuretic dosing as clinical course progresses (2) Acute and chronic respiratory failure ([id number]): As above Will require chronic O2 and BiPAP supplementation (3) CKD (chronic kidney disease) stage 3, GFR 30-59 ml/min: Stable initially (4) Bronchial obstruction: (5) Atrial fibrillation, chronic: Currently off anticoagulation due to dropping hemoglobins and falls (6) THIERNO (obstructive sleep apnea): (7) Aortic stenosis: Initial echocardiogram borderline severe see HPI History of Present Illness Reason for Consultation: Acute respiratory failure Requesting Physician: Dr. Martins Attending Physician: Dennis Martins MD History of Present Illness Patient is a complex 82-year-old female with past history notable for morbid obesity with hypoventilation syndrome on chronic oxygen supplementation and home BiPAP, chronic atrial fibrillation, chronic diastolic heart failure, chronic renal insufficiency, chronic anemia with recent decline. Discussion with patient family and review of records notes patient's had a gradual decline in the last 2 to 3 months and had suffered falls and possible bleeding issues declining hemoglobin. No source of blood loss defined with patient undergoing colonoscopy and EGD in early September. Chronic anticoagulation with warfarin was discontinued due to concerns. On 09/20/2018 due to additional concerns regarding fluctuating renal function chronic metolazone was also discontinued. Patient begin iron replacement with Venofer on 10/18/2018 as outpatient labs reflected a hemoglobin of 7.6 Patient presents this admission information gained from son having noted had acute on chronic worsening of dyspnea earlier today with patient requesting BiPAP to be administered. Son follows oxygen saturation levels at home and noted O2 sats in the 60s and patient was brought to [facility] [address] promptly. Initial chest x-ray demonstrated opacification of the right chest, EKG chronic atrial fibrillation with right bundle branch block configuration. Dr. Moon of intensive care service acutely intervened, patient undergoing thoracentesis of large pleural effusion removing 1.3 L from right chest followed by bronchoscopy with aspiration of extensive mucous plugging. Postprocedural chest x-ray revealed reexpansion of the right lung. Patient is referred for ongoing cardiac evaluation. Patient is unable to offer additional information currently remains on BiPAP supplementation. Preliminary echo review reveals moderate left hypertrophy with normal left systolic function. EF greater than 65% The aortic valve is calcified and thickened with borderline severe aortic stenosis calculated aortic valve area 1.0 cm peak aortic valve velocity 3.7 m/s There is moderate to severe tricuspid insufficiency with indirect evidence reflecting estimated systolic pressure greater than 50 mmHg, TR velocity 3.2 m/s, dilated IVC Allergies Allergy/AdvReac Type Severity Reaction Status Date / Time lisinopril Allergy Mild Cough Verified 10/24/18 10:31 PERFUMES AND DALE Allergy Mild allergy Uncoded 10/24/18 10:31 Home Medications Home Medications Medication Instructions Recorded Confirmed Type aspirin [Aspirin Low Dose] 81 mg PO HS 01/18/18 10/24/18 History atorvastatin 40 mg PO HS 01/18/18 10/24/18 History bupropion HCl 300 mg PO QAM 01/18/18 10/24/18 History digoxin 62.5 mcg PO QAM 01/18/18 10/24/18 History diltiazem HCl 360 mg PO QAM 01/18/18 10/24/18 History docusate sodium [Colace] 100 mg PO BID 01/18/18 10/24/18 History glimepiride 2 mg PO QAM 01/18/18 10/24/18 History losartan 25 mg PO QAM 01/18/18 10/24/18 History furosemide [Lasix] 80 mg PO BID #60 tab 02/08/18 10/24/18 Rx metolazone 2.5 mg tablet 2.5 mg PO [id number] tab 03/28/18 10/24/18 History 1 tab PO QAM 03/28/18 10/24/18 History vitamin,calcium,yfnezvlx-fkvn-fveds acid tablet Tradjenta 5 mg PO QAM 09/27/18 10/24/18 History ferrous sulfate 325 mg PO QAM 09/27/18 10/24/18 History magnesium oxide 400 mg PO BID 10/24/18 10/24/18 History Patient History Medical History Iron deficiency anemia (Chronic) Vitamin D deficiency (Chronic) Hyperlipidemia (Chronic) Obesity hypoventilation syndrome (Chronic) Renal lesion (Chronic) Ambulatory dysfunction (Chronic) Venous stasis ulcer of right lower extremity (Chronic) Atrial fibrillation, chronic (Chronic) DM type 2 (diabetes mellitus, type 2) (Chronic) Hypertension (Chronic) Hyperparathyroidism (Chronic) Obesity, morbid, BMI 50 or higher (Chronic) Psoriasis (Chronic) Osteoporosis (Chronic) Anxiety (Chronic) Chronic diastolic CHF (congestive heart failure) (Chronic) "echo 04/2015 - moderate LVH, EF 60-65%, grade II diastolic dysfunction" THIERNO (obstructive sleep apnea) (Chronic) oxygen 5L Chronic hypoxemic respiratory failure (Chronic) "on 5 L oxygen continuous" Anemia (Chronic) Heart failure (Chronic) Hypercholesterolemia (Chronic) Blood in stool Low kidney function On home oxygen therapy 5L oxygen at all times Surgical History S/P parathyroidectomy (Chronic) S/P tubal ligation (Chronic) History of appendectomy History of bilateral cataract extraction History of eye surgery bilt after cataract History of parathyroidectomy x2--d/t calcium issue History of thoracentesis History of tooth extraction all upper teeth Family History Father Myocardial infarction, Onset Age: 76 Mother Lung disease Other Heart disease No family history of adverse response to anesthesia Social History Preferred Language: Citizen Of [place] Communication Ability: Effective Communication Ability Comment: On bipap Visual Impairment: No Limitations Hearing Ability: Normal Grade Tamper Required: No Beliefs That Will Affect Care: None marital status: Current Living Situation: Alone Current Living Situation Comment: lives in apt, ambulates with walker, has Daughter and Son in law close by current occupational status: retired Other Information That Helps Us Care for You: No Feels Safe at Home: Yes Safety Concerns: Feels Safe At This Time Smoking Status: Former smoker Years Smoked: 33 Do You Dip or Chew Tobacco: No Smoking End Date: 1995 Second Hand Exposure: No Tobacco Cessation Education Requested by Patient: No Hx Alcohol Use: No Hx Substance Use: No during the past year weight has: decreased > 10 lbs Physical Exam Constitutional: + obese On BiPAP supplementation patient responding intermittent Neck: + thick neck Respiratory: Auscultation: + diminished lung sounds and + crackles Cardiovascular: Rate/Rhythm: + irregularly irregular Heart Sounds: normal S1, normal S2 and + murmur (Grade 3/6 systolic murmur right upper sternal border no diastolic murmur) Extremities: + edema (2+ lower extremity) Gastrointestinal (Abdomen): Obese with moderate sized panniculus Musculoskeletal: no cyanosis or clubbing, extremities motor strength 5/5 Skin: no rashes, warm and dry Results & Data Vital Signs (Past 12 Hours) Vital Signs Temp Pulse Pulse Pulse Resp BP BP 10/24/18 16:00 36.7 C 71 80 26 H 126/62 10/24/18 14:26 71 18 10/24/18 14:00 82 20 118/72 10/24/18 13:59 89 16 118/72 10/24/18 13:54 86 18 151/139 H 10/24/18 13:53 80 25 H 10/24/18 13:49 74 18 124/53 L 10/24/18 13:45 92 H 16 131/75 10/24/18 13:40 93 H 16 144/110 H 10/24/18 13:35 92 H 16 132/101 H 10/24/18 13:30 81 79 16 124/84 115/68 10/24/18 13:27 10/24/18 13:25 79 24 115/73 10/24/18 13:06 36.7 C 90 28 H 135/64 10/24/18 13:01 88 24 132/76 10/24/18 12:36 36.7 C 97 H 28 H 135/64 10/24/18 12:01 79 23 10/24/18 12:00 77 18 10/24/18 11:31 83 20 111/66 10/24/18 11:30 78 23 10/24/18 11:24 76 23 117/58 L 10/24/18 11:01 85 21 96/62 L 10/24/18 11:00 77 18 10/24/18 10:32 82 22 10/24/18 10:31 88 21 121/59 L 10/24/18 10:30 71 23 10/24/18 10:26 84 19 114/60 10/24/18 10:00 80 25 H 10/24/18 09:40 88 24 06/25/19 09:38 88 24 10/24/18 09:30 75 24 10/24/18 09:11 10/24/18 09:02 81 24 10/24/18 08:58 36.9 C 77 27 H 127/62 10/24/18 08:53 84 28 H 127/62 Pulse Ox 10/24/18 16:00 98 10/24/18 14:26 99 10/24/18 14:00 98 10/24/18 13:59 96 10/24/18 13:54 93 10/24/18 13:53 96 10/24/18 13:49 91 10/24/18 13:45 92 10/24/18 13:40 91 10/24/18 13:35 89 L 10/24/18 13:30 89 L 10/24/18 13:27 86 L 10/24/18 13:25 84 L 10/24/18 13:06 87 L 10/24/18 13:01 93 10/24/18 12:36 86 L 10/24/18 12:01 98 10/24/18 12:00 10/24/18 11:31 97 10/24/18 11:30 97 10/24/18 11:24 97 10/24/18 11:01 98 10/24/18 11:00 98 10/24/18 10:32 96 10/24/18 10:31 96 10/24/18 10:30 96 10/24/18 10:26 96 10/24/18 10:00 85 L 10/24/18 09:40 100 10/24/18 09:38 94 10/24/18 09:30 97 10/24/18 09:11 90 10/24/18 09:02 85 L 10/24/18 08:58 90 10/24/18 08:53 86 L Laboratory Results Laboratory Results - last 24 hr 10/24/18 10/24/18 10/24/18 09:15 09:15 09:15 WBC 8.71 RBC 3.21 L Hgb 8.9 L Hct 30.1 L MCV 93.8 MCH 27.7 MCHC 29.6 L RDW Std Deviation 60.7 H RDW Coeff of Dionne 17.8 H Plt Count 264 MPV 9.8 Immature Gran % (Auto) 0.5 Neut % (Auto) 73.9 Lymph % (Auto) 15.7 Piatt % (Auto) 8.7 Eos % (Auto) 1.0 Baso % (Auto) 0.2 Immature Gran # (Auto) 0.04 H Neut # (Auto) 6.43 Lymph # (Auto) 1.37 Piatt # (Auto) 0.76 H Eos # (Auto) 0.09 Baso # (Auto) 0.02 PT 11.9 INR 1.2 H APTT 28.2 PTT Ratio 1.0 Sodium 142 Potassium 3.2 L Chloride 97 L Carbon Dioxide 40 H Anion Gap 5.0 BUN 29 H Creatinine 1.38 H Est Cr Clr Drug Dosing 38.3 Est GFR ( Amer) 41.2 Est GFR (Non-Af Amer) 35.5 BUN/Creatinine Ratio 21.0 H Glucose 133 H POC Glucose Calcium 10.3 H Magnesium 2.9 H Total Bilirubin 0.5 AST 20 ALT 29 Alkaline Phosphatase 119 H Troponin I < 0.015 NT-Pro-B Natriuret Pep Total Protein 7.8 Albumin 3.1 L Globulin 4.7 H Albumin/Globulin Ratio 0.7 L Procalcitonin TSH Urine Color Urine Appearance Urine pH Ur Specific [place] Urine Protein Urine Glucose (UA) Urine Ketones Urine Blood Urine Nitrite Urine Bilirubin Urine Urobilinogen Ur Leukocyte Esterase Pleural Fluid Source Pleural Color Pleural Appearance Pleural WBC Pleural RBC Pleural Polynuclear % Pleural Mononuclear % Pleural Total Protein Pleural Albumin Pleural LDH Pleural Glucose Nasal Screen MRSA (PCR) 10/24/18 10/24/18 10/24/18 09:15 09:15 09:50 WBC RBC Hgb Hct MCV MCH MCHC RDW Std Deviation RDW Coeff of Dionne Plt Count MPV Immature Gran % (Auto) Neut % (Auto) Lymph % (Auto) Piatt % (Auto) Eos % (Auto) Baso % (Auto) Immature Gran # (Auto) Neut # (Auto) Lymph # (Auto) Piatt # (Auto) Eos # (Auto) Baso # (Auto) PT INR APTT PTT Ratio Sodium Potassium Chloride Carbon Dioxide Anion Gap BUN Creatinine Est Cr Clr Drug Dosing Est GFR ( Amer) Est GFR (Non-Af Amer) BUN/Creatinine Ratio Glucose POC Glucose Calcium Magnesium Total Bilirubin AST ALT Alkaline Phosphatase Troponin I NT-Pro-B Natriuret Pep 4061 H Total Protein Albumin Globulin Albumin/Globulin Ratio Procalcitonin 0.10 TSH Urine Color Yellow Urine Appearance Clear Urine pH 5.0 Ur Specific [place] 1.016 Urine Protein Negative Urine Glucose (UA) Negative Urine Ketones Negative Urine Blood Negative Urine Nitrite Negative Urine Bilirubin Negative Urine Urobilinogen Negative Ur Leukocyte Esterase Negative Pleural Fluid Source Pleural Color Pleural Appearance Pleural WBC Pleural RBC Pleural Polynuclear % Pleural Mononuclear % Pleural Total Protein Pleural Albumin Pleural LDH Pleural Glucose Nasal Screen MRSA (PCR) 10/24/18 10/24/18 10/24/18 13:53 14:00 14:00 WBC RBC Hgb Hct MCV MCH MCHC RDW Std Deviation RDW Coeff of Dionne Plt Count MPV Immature Gran % (Auto) Neut % (Auto) Lymph % (Auto) Piatt % (Auto) Eos % (Auto) Baso % (Auto) Immature Gran # (Auto) Neut # (Auto) Lymph # (Auto) Piatt # (Auto) Eos # (Auto) Baso # (Auto) PT INR APTT PTT Ratio Sodium Potassium Chloride Carbon Dioxide Anion Gap BUN Creatinine Est Cr Clr Drug Dosing Est GFR ( Amer) Est GFR (Non-Af Amer) BUN/Creatinine Ratio Glucose POC Glucose Calcium Magnesium Total Bilirubin AST ALT Alkaline Phosphatase Troponin I NT-Pro-B Natriuret Pep Total Protein Albumin Globulin Albumin/Globulin Ratio Procalcitonin TSH 4.240 Urine Color Urine Appearance Urine pH Ur Specific [place] Urine Protein Urine Glucose (UA) Urine Ketones Urine Blood Urine Nitrite Urine Bilirubin Urine Urobilinogen Ur Leukocyte Esterase Pleural Fluid Source RIGHT LUNG Pleural Color YELLOW Pleural Appearance CLEAR Pleural WBC 65 Pleural RBC < 3000 Pleural Polynuclear % 45.8 Pleural Mononuclear % 54.2 Pleural Total Protein Pleural Albumin Pleural LDH Pleural Glucose Nasal Screen MRSA (PCR) Negative 10/24/18 10/24/18 10/24/18 14:00 14:07 16:08 WBC RBC Hgb Hct MCV MCH MCHC RDW Std Deviation RDW Coeff of Dionne Plt Count MPV Immature Gran % (Auto) Neut % (Auto) Lymph % (Auto) Piatt % (Auto) Eos % (Auto) Baso % (Auto) Immature Gran # (Auto) Neut # (Auto) Lymph # (Auto) Piatt # (Auto) Eos # (Auto) Baso # (Auto) PT INR APTT PTT Ratio Sodium Potassium Chloride Carbon Dioxide Anion Gap BUN Creatinine Est Cr Clr Drug Dosing Est GFR ( Amer) Est GFR (Non-Af Amer) BUN/Creatinine Ratio Glucose POC Glucose 211 H 189 H Calcium Magnesium Total Bilirubin AST ALT Alkaline Phosphatase Troponin I NT-Pro-B Natriuret Pep Total Protein Albumin Globulin Albumin/Globulin Ratio Procalcitonin TSH Urine Color Urine Appearance Urine pH Ur Specific [place] Urine Protein Urine Glucose (UA) Urine Ketones Urine Blood Urine Nitrite Urine Bilirubin Urine Urobilinogen Ur Leukocyte Esterase Pleural Fluid Source Pleural Color Pleural Appearance Pleural WBC Pleural RBC Pleural Polynuclear % Pleural Mononuclear % Pleural Total Protein 2.8 Pleural Albumin 1.6 Pleural LDH 86 Pleural Glucose 151 Nasal Screen MRSA (PCR)
[2018-10-24] MEDS: INSULIN GLARGINE SOLOSTAR 100 UNITS/ML 3 ML PEN SC SCH (21:52)
[2018-10-25] MEDS: INSULIN ASPART 100 UNITS/ML 3 ML PEN SC SCH ×6 (00:53→22:19)
[2018-10-25 04:28] LABS: Basophils # (auto) 0.01 K/uL (0-0.2); Basophils % (auto) 0.1 %; Hematocrit (blood only) 27.4 % (37-47); Hemoglobin 8.1 g/dL (12.0-16.0); Immature Granulocytes # (auto) 0.02 K/uL (0.00-0.02); Immature Granulocytes % (auto) 0.3 %; Lymphocytes # (auto) 0.63 K/uL (1.2-3.4); Lymphocytes % (auto) 8.7 %; Mean Corpuscular Hgb Conc 29.6 g/dL (32-36); Mean Corpuscular Volume 94.8 fL (80-100); Mean Platelet Volume 9.2 fL (7.4-10.4); Monocytes # (auto) 0.63 K/uL (0.11-0.59); Monocytes % (auto) 8.7 %; Neutrophils # (auto) 5.97 K/uL (1.4-6.5); Neutrophils % (auto) 82.2 %; Platelet Count 220 K/uL (130-400); RDW Coefficient of Variation 17.5 % (11.5-14.5); RDW Standard Deviation 61.3 fL (36.4-46.3); Red Blood Count 2.89 M/uL (4.2-5.4); White Blood Count 7.26 K/uL (4.8-10.8)
[2018-10-25 04:58] LABS: BUN Creatinine Ratio 25.1 (10-20); Calcium 9.1 mg/dl (8.5-10.1); Creatinine Clr Calc Pharmacy 42.6 ml/min; Est GFR (African American) 46.8; Est GFR (Non-African American) 40.4; Magnesium 2.7 mg/dl (1.8-2.4); Potassium 3.3 mmol/L (3.5-5.1)
[2018-10-25 05:41] LABS: iSTAT Allen Test Pass; iSTAT Arterial Blood Gas HCO3 51 meg/L (19-24); iSTAT Arterial Blood Gas pCO2 82 mmHg (35-46); iSTAT Carbon Dioxide < 5 mEq/l (24-31); iSTAT FiO2 505 %; iSTAT Site L Radial
[2018-10-25 05:58] LABS: Estimated Average Glucose 174 mg/dl; Hemoglobin A1C 7.7 % (4.5-5.6)
[2018-10-25] MEDS: INSULIN GLARGINE SOLOSTAR 100 UNITS/ML 3 ML PEN SC SCH ×2 (08:14→22:19)
[2018-10-25] MEDS ORDERED: POTASSIUM CHLORIDE PWD 20 MEQ PACK PO ONE (08:15)
--- NOTE | 2018-10-25 08:18 | XRay Report ---
XR chest 1V portable CLINICAL HISTORY: follow up right lung mirella out COMPARISON STUDY: 10/24/2018 FINDINGS: Mild increasing density right hemithorax presumably secondary to reaccumulation of pleural fluid and or atelectatic change. Prominent pulmonary vasculature persists. Thoracic aorta is tortuous. IMPRESSION: Mild increase in density right lung base presumably secondary to reaccumulation of pleur al fluid and/or basilar atelectasis. The above report was generated using voice recognition software. It may contain grammatical, syntax or spelling errors. Electronically signed by: Renzo Cordova M.D. 10/25/2018 8:17 AM
[2018-10-25] MEDS ORDERED: dilTIAZem HCL 180 MG CAPCR PO SCH (09:00)
[2018-10-25] MEDS: FUROSEMIDE 20 MG TAB PO SCH ×2 (10:03→17:33)
[2018-10-25] MEDS: BuPROPion XL 300 MG TABCR PO SCH (10:03)
[2018-10-25] MEDS: FERROUS SULFATE 325 MG TAB PO SCH (10:03)
[2018-10-25] MEDS: DIGOXIN 0.125 MG TAB PO SCH (10:03)
[2018-10-25] MEDS: DOCUSATE SODIUM 100 MG CAP PO SCH ×2 (10:06→22:18)
[2018-10-25] MEDS: HEPARIN SOD 5,000 UNIT/0.5 ML VIAL SQ SCH ×2 (10:06→22:18)
--- NOTE | 2018-10-25 10:36 | Hospitalist Progress Note ---
Date of Service October 25, 2018 Assessment & Plan (1) Acute and chronic respiratory failure ([id number]): (2) Bronchial obstruction: (3) Pleural effusion: This is a 82 yr old F who has a significant PMH of Chronic Respiratory Failure on 5L of O2, Chronic Diastolic CHF, Chronic Afib of OAC due to anemia and falls, HTN, HLD, T2DM, CKD -3, venous stasis dermatitis, iron def anemia who presents to [facility] ED via EMS secondary to hypoxia. Patient presented to ED on 10/24/18 with acute hypoxic respiratory failure requiring BiPAP therapy. Chest x- ray revealed right hemithorax opacification. CT of chest revealed right lung collapse secondary to extensive mucus plugging, secretions right bronchial tree, moderate right pleural effusion, moderate cardiomegaly, moderate trace perihepatic ascities. Patient was Admitted to ICU from the ED on 10/24/18 Acute hypoxic respiratory failure secondary to occluded airways and expressing compression with pleural effusion. Recurrent pleural effusion right-sided. 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 and bronchus intermedius -10/24/18 Patient underwent diagnostic and therapeutic thoracentesis (1.1 L removed) and bronchoscopy to remove mucous plugging -follow up CXR on 10/24/18: Mild increase in density right lung base presumably secondary to reaccumulation of pleural fluid and/or basilar atelectasis -pleural effusion as Coag neg staph not lugdunensis, review of cell counts and pleural protein that this effusion is likely transudative so unlikely to need antibiotics -treat underlying congestive heart failure as below (4) Acute on chronic diastolic CHF (congestive heart failure): Aortic Stenosis -Patient received Lasix IV 80 mg x 1 in the ED, s/p thoracentesis and bronchoscopy on 10/24/18. -echocardiogram on this admission with newly defined borderline severe aortic stenosis -will place on oral Lasix 20 mg PO BID and monitor blood pressures and plans to increase diuretics as tolerated -transfer out of ICU on 10/25/18 -Daily weights, monitor input/output -low sodium diet to no more than 2 grams daiy, fluid restruction to 1800 ml daily (5) Atrial fibrillation, chronic: -resume diltiazem (Off Coumadin secondary to iron deficiency anemia, positive FOBT, follow outpatient with primary care doctor/gastroenterology) -resume aspirin -resume digoxin (6) DM type 2 (diabetes mellitus, type 2): hbA1c .7 -hold Tradjenta and glimepiride -Lantus/NovoLog per protocol (7) CKD (chronic kidney disease) stage 3, GFR 30-59 ml/min: monitor renal function with diuretics (8) Iron deficiency anemia: -had IV Venofer infusion on 10/18 following with nephrology -Recent outpatient upper GI colonoscopy was performed on 10/04/18 unrevealing for blood loss, Per family plan for outpatient internal capsule study -resume oral iron supplements (9) Hypertension: -blood pressure controlled off Losartan for now, hold off Losartan at this time (10) THIERNO (obstructive sleep apnea): -baseline oxygen use is 5 liters/min -encouraged to use CPAP with sleep (11) DVT prophylaxis: SCDS/TEDS Patient's son Sridhar [phone] at the bedside and also provided phone number for patient's daughter Zuleima [phone] Subjective Patient seen and examined in the ICU. On baseline oxygen of 5 liters/minute. denies acute shortness of breath today. denies problems with swallowing. denies problems with breakfast, no chest pain. Patient's son Sridhar [phone] at the bedside and also provided phone number for patient's daughter Zuleima [phone]. We discussed plans for further care when transfer out of ICU. Physical Exam Constitutional: comfortable Eyes: PERRL, conjunctivae normal, anicteric sclerae EOM intact bilaterally ENMT: external ear and nose normal, oropharynx normal Respiratory: normal respiratory effort (right lower lobe with diminished lung sounds) Cardiovascular: Rate/Rhythm: regular rate Heart Sounds: + murmur Extremities: + edema Gastrointestinal (Abdomen): normal bowel sounds, soft, nontender, no hepatosplenomegaly Musculoskeletal: Head/Neck/Chest: normocephalic and head atraumatic Neurologic: PERRL, EOMI, accommodation nl, no face palsy, no dysarthria CN's II-XI intact bilaterally Psychiatric: A+Ox3, euthymic affect Genitourinary: chou Results & Data Vital Signs (Past 12 Hours) Vital Signs Temp Pulse Resp BP Pulse Ox 10/25/18 10:03 72 10/25/18 08:00 75 10/25/18 06:01 75 21 107/60 94 10/25/18 05:52 71 18 94 10/25/18 05:01 71 19 99 10/25/18 05:00 65 16 111/62 99 10/25/18 04:09 73 20 99 10/25/18 04:02 68 21 97 10/25/18 04:00 36.7 C 77 18 100/65 97 10/25/18 03:00 65 22 106/60 98 10/25/18 02:00 64 25 H 111/59 L 98 10/25/18 01:01 77 24 98 10/25/18 01:00 79 24 123/67 99 10/25/18 00:01 67 18 98 10/25/18 00:00 36.6 C 70 20 115/74 99 10/24/18 23:47 76 16 99 10/24/18 23:01 66 29 H 98 10/24/18 23:00 72 28 H 109/64 99
--- NOTE | 2018-10-25 14:17 | Cardiology Progress Note ---
Date of Service October 25, 2018 Assessment & Plan (1) Acute on chronic diastolic CHF (congestive heart failure): Patient has initially responded to thoracentesis and bronchoscopy removing mucous plug. Clinical history notable for gradual increase in the abdominal bloating edema multifactorial etiology with recent reduction in diuretic dosing (discontinuation of metolazone), worsening anemia Course was complicated by underlying medical issues including hypoventilation syndrome renal insufficiency chronic respiratory issues. Now with newly defined borderline severe aortic stenosis We will expect patient to require resumption of diuretic dosing as clinical course progresses Furosemide has been restarted. Spironolactone will be added at 12.5 mill grams p.o. daily (2) Acute and chronic respiratory failure ([id number]): As above Will require chronic O2 and BiPAP supplementation (3) CKD (chronic kidney disease) stage 3, GFR 30-59 ml/min: Stable initially (4) Bronchial obstruction: (5) Atrial fibrillation, chronic: Patient on titrated chiasm since initial diagnosis 2016 currently on high- dose diltiazem and digoxin for atrial fibrillation rate control. We will take advantage of current hospitalization and switch to Toprol with low- dose digoxin hopefully aid in fluid retention (6) THIERNO (obstructive sleep apnea): (7) Aortic stenosis: Borderline severe with preserved LV systolic function Subjective Patient seen and examined, chart, medications, telemetry reviewed. Patient looks and appears stable, sitting out of bed in chair still transient hypoxia Physical Exam Constitutional: + obese; no acute distress Eyes: PERRL, conjunctivae normal, anicteric sclerae ENMT: external ear and nose normal, oropharynx normal Neck: + thick neck Respiratory: Auscultation: + diminished lung sounds, + crackles and + rhonchi (Scattered rhonchi on the right) Cardiovascular: Rate/Rhythm: + irregularly irregular Heart Sounds: normal S1, normal S2 and + murmur (Grade 3/6 systolic murmur right upper sternal border no diastolic murmur) Extremities: + edema (2+ lower extremity) Musculoskeletal: no cyanosis or clubbing, extremities motor strength 5/5 Skin: no rashes, warm and dry Results & Data Vital Signs (Past 12 Hours) Vital Signs Temp Pulse Resp BP Pulse Ox Pulse Ox 10/25/18 12:01 87 22 90 10/25/18 12:00 77 23 109/65 91 90 10/25/18 11:00 79 23 93 10/25/18 10:03 72 10/25/18 10:01 72 31 H 117/56 L 93 10/25/18 10:00 83 22 82 L 10/25/18 09:00 80 33 H 104/59 L 94 10/25/18 08:01 76 29 H 89 L 10/25/18 08:00 73 27 H 116/57 L 86 L 10/25/18 07:01 81 26 H 94 10/25/18 07:00 65 21 104/52 L 92 10/25/18 06:01 75 21 107/60 94 10/25/18 05:52 71 18 94 10/25/18 05:01 71 19 99 10/25/18 05:00 65 16 111/62 99 10/25/18 04:09 73 20 99 10/25/18 04:02 68 21 97 10/25/18 04:00 36.7 C 77 18 100/65 97 10/25/18 03:00 65 22 106/60 98 Laboratory Results Laboratory Results - last 24 hr 10/25/18 10/25/18 10/26/18 16:27 20:32 06:59 WBC 6.31 RBC 3.13 L Hgb 8.7 L Hct 30.0 L MCV 95.8 MCH 27.8 MCHC 29.0 L RDW Std Deviation 62.7 H RDW Coeff of Dionne 18.1 H Plt Count 227 MPV 9.4 Immature Gran % (Auto) 0.3 Neut % (Auto) 69.4 Lymph % (Auto) 17.0 [place] % (Auto) 11.7 Eos % (Auto) 1.3 Baso % (Auto) 0.3 Immature Gran # (Auto) 0.02 Neut # (Auto) 4.38 Lymph # (Auto) 1.07 L [place] # (Auto) 0.74 H Eos # (Auto) 0.08 Baso # (Auto) 0.02 Sodium Potassium Chloride Carbon Dioxide Anion Gap BUN Creatinine Est Cr Clr Drug Dosing Est GFR ( Amer) Est GFR (Non-Af Amer) BUN/Creatinine Ratio Glucose POC Glucose 130 H 155 H Calcium Magnesium Total Bilirubin AST ALT Alkaline Phosphatase Total Protein Albumin Globulin Albumin/Globulin Ratio 10/26/18 10/26/18 06:59 07:11 WBC RBC Hgb Hct MCV MCH MCHC RDW Std Deviation RDW Coeff of Dionne Plt Count MPV Immature Gran % (Auto) Neut % (Auto) Lymph % (Auto) [place] % (Auto) Eos % (Auto) Baso % (Auto) Immature Gran # (Auto) Neut # (Auto) Lymph # (Auto) [place] # (Auto) Eos # (Auto) Baso # (Auto) Sodium 141 Potassium 3.2 L Chloride 94 L Carbon Dioxide 49 H* Anion Gap -2.0 L BUN 32 H Creatinine 1.28 H Est Cr Clr Drug Dosing 40.6 Est GFR ( Amer) 45.1 Est GFR (Non-Af Amer) 38.9 BUN/Creatinine Ratio 24.8 H Glucose 122 H POC Glucose 133 H Calcium 9.2 Magnesium 2.5 H Total Bilirubin 0.4 AST 20 ALT 23 Alkaline Phosphatase 96 Total Protein 7.0 Albumin 2.8 L Globulin 4.2 H Albumin/Globulin Ratio 0.7 L
--- NOTE | 2018-10-25 14:31 | Critical Care Progress Note ---
Date of Service October 25, 2018 Assessment & Plan (1) Bronchial obstruction: Impression: 1. Acute hypoxic respiratory failure secondary to occluded airways and expressing compression with pleural effusion. 2. Recurrent pleural effusion right-sided. 3. 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 4. History of CHF. 5. Obstructive sleep apnea. Morbid obesity. Plan: 1. Continue with diuresis as addressed by Dr. Pak from cardiology. 2. Ultrasound done at the bedside, showed small pleural effusion, no need for repeat thoracentesis at this point. 3. Pulmonary toilet for right lower lobe atelectasis. 4. BiPAP nocturnally at the current settings and as needed daytime. 5. Chest x-ray reviewed personally findings as above. 6. Pleural fluid are consistent with transudate, no further intervention. 7. BiPAP 15/8 with FiO2 via in-line using a full facemask. 8. Patient can be dispositioned to telemetry. 9. Discussed with the family in details. 10. Resume oral intake. 11. Appreciate the assistance of respiratory therapy and nursing staff. 12. Case discussed with the family in details, all their questions been answered. 13. Electrolytes repleted. Critical care time spent with the patient was 45 minutes excluding procedure time. Subjective The patient has frequent episodes of increasing shortness of breath and hypoxia requiring BiPAP placement, although she was uneventful overnight, bedside ultrasound was done which showed small pleural effusion and atelectasis of the right lower lobe. The patient placed back again on the BiPAP. No cough or sputum production reported. However, she does have shortness of breath at baseline. Review of Systems Review of Systems: 10 systems has been reviewed, apart from the above, no other symptoms noted. Physical Exam Physical Exam: S1-S2, regular rate and rhythm, currently on the BiPAP she is 95%, lungs with diminished breath sounds at the right base, morbid obesity, abdomen is benign, edema in the periphery. Results & Data Vital Signs (Past 12 Hours) Vital Signs Temp Pulse Resp BP Pulse Ox Pulse Ox 10/25/18 14:04 95 10/25/18 12:01 87 22 90 10/25/18 12:00 77 23 109/65 91 90 10/25/18 11:00 79 23 93 10/25/18 10:03 72 10/25/18 10:01 72 31 H 117/56 L 93 10/25/18 10:00 83 22 82 L 10/25/18 09:00 80 33 H 104/59 L 94 10/25/18 08:01 76 29 H 89 L 10/25/18 08:00 73 27 H 116/57 L 86 L 10/25/18 07:01 81 26 H 94 10/25/18 07:00 65 21 104/52 L 92 10/25/18 06:01 75 21 107/60 94 10/25/18 05:52 71 18 94 10/25/18 05:01 71 19 99 10/25/18 05:00 65 16 111/62 99 10/25/18 04:09 73 20 99 10/25/18 04:02 68 21 97 10/25/18 04:00 36.7 C 77 18 100/65 97 10/25/18 03:00 65 22 106/60 98 Laboratory Results Labs were reviewed personally, no leukocytosis, hematocrit has been stable. BMP is also stable. Diagnostic Findings Ultrasound and chest x-ray showed right-sided pleural effusion with atelectasis. PG Care Time/CCT Total Critical Care Time: 45
[2018-10-25] MEDS ORDERED: FUROSEMIDE 20 MG in SYRINGE 0 ML IV ONE (18:10)
[2018-10-25] MEDS: ALBUTEROL 0.5% NEB SOLN 2.5 MG/0.5 ML VIAL NEB SCH (18:17)
[2018-10-25] MEDS: ASPIRIN 81 MG ECTAB PO SCH (22:18)
[2018-10-25] MEDS: METOPROLOL SUCC 25MG EXT REL TAB PO SCH (22:20)
[2018-10-25] MEDS: ATORVASTATIN 40 MG TAB PO SCH (22:20)
[2018-10-26] MEDS: ALBUTEROL 0.5% NEB SOLN 2.5 MG/0.5 ML VIAL NEB SCH ×2 (00:59→07:16)
[2018-10-26] MEDS ORDERED: ACETAMINOPHEN 325 MG TAB PO PRN (01:30)
[2018-10-26 07:28] LABS: Basophils # (auto) 0.02 K/uL (0-0.2); Basophils % (auto) 0.3 %; Eosinophils # (auto) 0.08 K/uL (0-0.5); Eosinophils % (auto) 1.3 %; Hemoglobin 8.7 g/dL (12.0-16.0); Immature Granulocytes # (auto) 0.02 K/uL (0.00-0.02); Immature Granulocytes % (auto) 0.3 %; Lymphocytes # (auto) 1.07 K/uL (1.2-3.4); Mean Corpuscular Volume 95.8 fL (80-100); Mean Platelet Volume 9.4 fL (7.4-10.4); Monocytes # (auto) 0.74 K/uL (0.11-0.59); Monocytes % (auto) 11.7 %; Neutrophils # (auto) 4.38 K/uL (1.4-6.5); Neutrophils % (auto) 69.4 %; Platelet Count 227 K/uL (130-400); RDW Coefficient of Variation 18.1 % (11.5-14.5); RDW Standard Deviation 62.7 fL (36.4-46.3); Red Blood Count 3.13 M/uL (4.2-5.4); White Blood Count 6.31 K/uL (4.8-10.8)
[2018-10-26] MEDS: METOPROLOL SUCC 25MG EXT REL TAB PO SCH ×2 (07:51→20:58)
[2018-10-26] MEDS: FERROUS SULFATE 325 MG TAB PO SCH (07:51)
[2018-10-26] MEDS: BuPROPion XL 300 MG TABCR PO SCH (07:52)
[2018-10-26] MEDS: DIGOXIN 0.125 MG TAB PO SCH (07:52)
[2018-10-26] MEDS: DOCUSATE SODIUM 100 MG CAP PO SCH ×2 (07:53→21:00)
[2018-10-26] MEDS: HEPARIN SOD 5,000 UNIT/0.5 ML VIAL SQ SCH ×2 (07:53→20:58)
[2018-10-26] MEDS: INSULIN GLARGINE SOLOSTAR 100 UNITS/ML 3 ML PEN SC SCH ×2 (07:53→21:02)
[2018-10-26] MEDS: INSULIN ASPART 100 UNITS/ML 3 ML PEN SC SCH ×4 (07:55→21:02)
[2018-10-26 07:59] LABS: Albumin Globulin Ratio 0.7 (0.9-2); Albumin Level 2.8 gm/dl (3.4-5.0); BUN Creatinine Ratio 24.8 (10-20); Bilirubin,Total 0.4 mg/dl (0.2-1); Calcium 9.2 mg/dl (8.5-10.1); Creatinine Clr Calc Pharmacy 40.6 ml/min; Est GFR (African American) 45.1; Est GFR (Non-African American) 38.9; Globulin 4.2 gm/dl (2.5-4.0); Magnesium 2.5 mg/dl (1.8-2.4); Potassium 3.2 mmol/L (3.5-5.1)
[2018-10-26] MEDS ORDERED: ALBUTEROL 0.5% NEB SOLN 2.5 MG/0.5 ML VIAL NEB PRN (08:35)
[2018-10-26] MEDS ORDERED: POTASSIUM ACETATE 10 MEQ in 0.9 % SODIUM CHLORIDE 100 ML IV STA (08:36)
[2018-10-26] MEDS ORDERED: POTASSIUM CHLORIDE 20 MEQ TABCR PO STA (08:42)
--- NOTE | 2018-10-26 08:44 | Hospitalist Progress Note ---
Date of Service October 26, 2018 Assessment & Plan (1) Acute and chronic respiratory failure ([id number]): (2) Bronchial obstruction: (3) Pleural effusion: This is a 82 yr old F who has a significant PMH of Chronic Respiratory Failure on 5L of O2, Chronic Diastolic CHF, Chronic Afib of OAC due to anemia and falls, HTN, HLD, T2DM, CKD -3, venous stasis dermatitis, iron def anemia who presents to [facility] ED via EMS secondary to hypoxia. Patient presented to ED on 10/24/18 with acute hypoxic respiratory failure requiring BiPAP therapy. Chest x- ray revealed right hemithorax opacification. CT of chest revealed right lung collapse secondary to extensive mucus plugging, secretions right bronchial tree, moderate right pleural effusion, moderate cardiomegaly, moderate trace perihepatic ascities. Patient was Admitted to ICU from the ED on 10/24/18 Acute hypoxic respiratory failure secondary to occluded airways and expressing compression with pleural effusion. Recurrent pleural effusion right-sided. 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 and bronchus intermedius -10/24/18 Patient underwent diagnostic and therapeutic thoracentesis (1.1 L removed) and bronchoscopy to remove mucous plugging -follow up CXR on 10/24/18: Mild increase in density right lung base presumably secondary to reaccumulation of pleural fluid and/or basilar atelectasis -pleural effusion as Coag neg staph not lugdunensis, review of cell counts and pleural protein that this effusion is likely transudative so unlikely to need antibiotics -treat underlying congestive heart failure as below - will plan for 2 view CXR on 10/26/18 (4) Acute on chronic diastolic CHF (congestive heart failure): Aortic Stenosis -Patient received Lasix IV 80 mg x 1 in the ED, s/p thoracentesis and bronchoscopy on 10/24/18. -echocardiogram on this admission with newly defined borderline severe aortic stenosis -transferred out of ICU on 10/25/18 -during the transition from ICU to telemetry girard, patient have been getting intermittent oral and IV Lasix -will have scheduled lasix titrated upwards towards home dose 80 mg PO BID -Daily weights, monitor input/output; trial of void and remove chou planned on 10/26/18 -low sodium diet to no more than 2 grams daily, fluid restriction to 1800 ml daily (5) Atrial fibrillation, chronic: -resume diltiazem (Off Coumadin secondary to iron deficiency anemia, positive FOBT, follow outpatient with primary care doctor/gastroenterology) -continue aspirin -continue digoxin (6) DM type 2 (diabetes mellitus, type 2): hbA1c .7 -hold Tradjenta and glimepiride -Lantus/NovoLog per protocol (7) CKD (chronic kidney disease) stage 3, GFR 30-59 ml/min: monitor renal function with diuretics Hypokalemia secondary to diuretics -serum potassium 3.2 on 10/26/18, oral and IV potassium to be given on 10/26/18 (8) Iron deficiency anemia: -had IV Venofer infusion on 10/18 following with nephrology -Recent outpatient upper GI colonoscopy was performed on 10/04/18 unrevealing for blood loss, Per family plan for outpatient internal capsule study -continue oral iron supplements (9) Hypertension: -blood pressure controlled off Losartan for now, hold off Losartan at this time (10) THIERNO (obstructive sleep apnea): -baseline oxygen use is 5 liters/min -encouraged to use BIPAP as needed Continue PT/OT while in the hospital (11) DVT prophylaxis: SCDS/TEDS Patient's son Sridhar [phone] at the bedside and also provided phone number for patient's daughter Zuleima [phone] Subjective Patient breathing on supplementary oxygen. Patient feels better with her breathing after scheduled nebulizer treatments yesterday. Patient denies chest pain. No shortness of breath. She and her sone reports she was able to do some physical therapy exercises yesterday but she is generally in the bed. Patient is agreeable to go to radiology to stand for a 2 view X ray planned for later today. Patient has chou and we discussed removal of chou today for trial of void Physical Exam Constitutional: comfortable Eyes: PERRL, conjunctivae normal, anicteric sclerae EOM intact bilaterally ENMT: external ear and nose normal, oropharynx normal Respiratory: normal respiratory effort (right lower lobe with diminished lung sounds) Cardiovascular: Rate/Rhythm: regular rate Heart Sounds: + murmur Extremities: + edema Gastrointestinal (Abdomen): normal bowel sounds, soft, nontender, no hepatosplenomegaly Musculoskeletal: Head/Neck/Chest: normocephalic and head atraumatic Neurologic: PERRL, EOMI, accommodation nl, no face palsy, no dysarthria CN's II-XI intact bilaterally Psychiatric: A+Ox3, euthymic affect Genitourinary: chou Results & Data Vital Signs (Past 12 Hours) Vital Signs Temp Pulse Pulse Pulse Resp BP BP 10/26/18 07:52 73 10/26/18 07:17 59 L 23 10/26/18 07:16 59 L 23 10/26/18 07:04 36.3 C L 53 L 18 130/75 10/26/18 05:00 58 L 20 10/26/18 04:09 36.3 C L 54 L 18 108/65 10/26/18 01:01 60 24 10/26/18 01:00 60 24 10/26/18 00:00 72 10/25/18 23:39 36.1 C L 19 118/66 10/25/18 23:11 76 32 H 10/25/18 22:22 71 137/70 Pulse Ox 10/26/18 07:52 10/26/18 07:17 96 10/26/18 07:16 96 10/26/18 07:04 96 10/26/18 05:00 94 10/26/18 04:09 95 10/26/18 01:01 94 10/26/18 01:00 94 10/26/18 00:00 10/25/18 23:39 96 10/25/18 23:11 91 10/25/18 22:22
[2018-10-26] MEDS ORDERED: FUROSEMIDE 40 MG TAB PO ONE (08:45)
[2018-10-26] MEDS ORDERED: FUROSEMIDE 40 MG TAB PO SCH (09:00)
--- NOTE | 2018-10-26 09:26 | XRay Report ---
XR chest 2V routine CLINICAL HISTORY: follow up lung infiltrates pneumonia COMPARISON STUDY: 10/25/2017 FINDINGS: Stable cardiomegaly. Slight increase in pulmonary vasculature. Slight increase in volume of right effusion. IMPRESSION: Congestive heart failure with slight increase in volume of the patient's right pleural e ffusion The above report was generated using voice recognition software. It may contain grammatical, syntax or spelling errors. Electronically signed by: Renzo Cordova M.D. 10/26/2018 9:25 AM
[2018-10-26] MEDS: POTASSIUM CHLORIDE / WTR 10 MEQ/100 ML PLCT IV SCH ×2 (09:57→11:46)
--- NOTE | 2018-10-26 10:01 | Pulmonology Progress Note ---
Date of Service October 26, 2018 Assessment & Plan (1) Bronchial obstruction: Impression: 1. Right lung atelectasis with pleural effusion, improved, continue to have inflated lung, right lower lobe remains with atelectasis and reactive pleural effusion. 2. Transudate pleural effusion with pulmonary vascular congestion consistent with CHF. 3. 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 4. Chronic hypoxic, hypercapnic respiratory failure. 5. Obstructive sleep apnea. Morbid obesity. Plan: 1. Continue with diuresis as addressed by Dr. Pak from cardiology. 2. No need for thoracentesis at this point. 3. Pulmonary toilet for right lower lobe atelectasis. 4. BiPAP nocturnally, the patient has CPAP at home which should be converted to a BiPAP. 5. Chest x-ray reviewed personally, stable findings and continue to have pulmonary vascular congestion. 6. Pleural fluid are consistent with transudate, no further intervention. 7. Electrolyte replacement. Discussed with Dr. Martins. Thank you, will follow. Subjective The patient denies any shortness of breath, she does have occasional cough and inability to raise her sputum according to her but she appears comfortable, she tolerated the BiPAP overnight, she was ambulating from the bed to the chair with O2 sat remains above than 89% according to the son who was at the bedside. No chest pain. Review of Systems Review of Systems: Review of system otherwise was unremarkable including 10 systems were reviewed. Physical Exam Physical Exam: Her vital signs are stable, she has diminished breath sounds at the right base, S1-S2, no oral lesions, no thrush, edema in the periphery noted. Morbid obesity and abdomen is benign. Neurologically she is following commands and competent and does not have any neuro focal exam Results & Data Vital Signs (Past 12 Hours) Vital Signs Temp Pulse Pulse Pulse Resp BP BP 10/26/18 07:52 73 10/26/18 07:17 59 L 23 10/26/18 07:16 59 L 23 10/26/18 07:04 36.3 C L 53 L 18 130/75 10/26/18 05:00 58 L 20 10/26/18 04:09 36.3 C L 54 L 18 108/65 10/26/18 01:01 60 24 10/26/18 01:00 60 24 10/26/18 00:00 72 10/25/18 23:39 36.1 C L 19 118/66 10/25/18 23:11 76 32 H 10/25/18 22:22 71 137/70 Pulse Ox 10/26/18 07:52 10/26/18 07:17 96 10/26/18 07:16 96 10/26/18 07:04 96 10/26/18 05:00 94 10/26/18 04:09 95 10/26/18 01:01 94 10/26/18 01:00 94 10/26/18 00:00 10/25/18 23:39 96 10/25/18 23:11 91 10/25/18 22:22 Laboratory Results Labs reviewed, pleural fluid are transudate of, contaminant specimen with gram- positive coags negative cocci, the rest of her labs are consistent with hypokalemic metabolic alkalosis. Diagnostic Findings Chest x-ray with pulmonary vascular congestion, cardiomegaly, atelectasis of the right lower lobe with pleural effusion.
[2018-10-26] MEDS: SPIRONOLACTONE 25 MG TAB PO SCH (16:58)
[2018-10-26] MEDS: FUROSEMIDE 80 MG TAB PO SCH (16:59)
[2018-10-26] MEDS: AMOXICILLIN/CLAVULANATE 500 MG TAB PO SCH (17:00)
[2018-10-26] MEDS ORDERED: NYSTATIN POWDER 15GM BTL EXT PRN (18:41)
[2018-10-26] MEDS: ASPIRIN 81 MG ECTAB PO SCH (20:57)
[2018-10-26] MEDS: ATORVASTATIN 40 MG TAB PO SCH (20:57)
[2018-10-27 08:21] LABS: BUN Creatinine Ratio 25.4 (10-20); Calcium 9.5 mg/dl (8.5-10.1); Creatinine Clr Calc Pharmacy 49.5 ml/min; Est GFR (African American) 57.3; Est GFR (Non-African American) 49.4; Potassium 3.4 mmol/L (3.5-5.1)
[2018-10-27] MEDS: INSULIN ASPART 100 UNITS/ML 3 ML PEN SC SCH ×2 (08:30→12:56)
[2018-10-27] MEDS: BuPROPion XL 300 MG TABCR PO SCH (08:32)
[2018-10-27] MEDS: SPIRONOLACTONE 25 MG TAB PO SCH (08:32)
[2018-10-27] MEDS: FUROSEMIDE 80 MG TAB PO SCH (08:33)
[2018-10-27] MEDS: FERROUS SULFATE 325 MG TAB PO SCH (08:33)
[2018-10-27] MEDS: HEPARIN SOD 5,000 UNIT/0.5 ML VIAL SQ SCH (08:33)
[2018-10-27] MEDS: METOPROLOL SUCC 25MG EXT REL TAB PO SCH (08:33)
[2018-10-27] MEDS: AMOXICILLIN/CLAVULANATE 500 MG TAB PO SCH (08:33)
[2018-10-27] MEDS: INSULIN GLARGINE SOLOSTAR 100 UNITS/ML 3 ML PEN SC SCH (08:34)
[2018-10-27] MEDS: DOCUSATE SODIUM 100 MG CAP PO SCH (08:35)
[2018-10-27] MEDS ORDERED: POTASSIUM CHLORIDE 20 MEQ TABCR PO ONE (09:00)
[2018-10-27] MEDS ORDERED: ALBUTEROL HFA 8 GM INHALER INH PRN (11:34)
--- NOTE | 2018-10-27 11:38 | Hospitalist Progress Note ---
Date of Service October 27, 2018 Assessment & Plan (1) Acute and chronic respiratory failure ([id number]): (2) Bronchial obstruction: (3) Pleural effusion: This is a 82 yr old F who has a significant PMH of Chronic Respiratory Failure on 5L of O2, Chronic Diastolic CHF, Chronic Afib of OAC due to anemia and falls, HTN, HLD, T2DM, CKD -3, venous stasis dermatitis, iron def anemia who presents to [facility] ED via EMS secondary to hypoxia. Patient presented to ED on 10/24/18 with acute hypoxic respiratory failure requiring BiPAP therapy. Chest x- ray revealed right hemithorax opacification. CT of chest revealed right lung collapse secondary to extensive mucus plugging, secretions right bronchial tree, moderate right pleural effusion, moderate cardiomegaly, moderate trace perihepatic ascities. Patient was Admitted to ICU from the ED on 10/24/18 Acute hypoxic respiratory failure secondary to occluded airways and expressing compression with pleural effusion. Recurrent pleural effusion right-sided. 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 Continue Augmentin for 7 more days -serial CXR were done in the hospital and management of CHF as the likely cause of the pleural effusion was done -Patient will also need follow Chest X ray with primary care doctor for the right lung pleural effusion that had fluid removed for pleural effusion with bronchoscopy on 10/24/18 -Albuterol inhaler also prescribed. Recommend to primary care physician that patient should be referred to a pulmonary clinic as outpatient for correction management of respiratory issues (4) Acute on chronic diastolic CHF (congestive heart failure): Aortic Stenosis -Patient received Lasix IV 80 mg x 1 in the ED, s/p thoracentesis and bronchoscopy on 10/24/18. -echocardiogram on this admission with newly defined borderline severe aortic stenosis -transferred out of ICU on 10/25/18 -during the transition from ICU to telemetry girard, patient have been getting intermittent oral and IV Lasix -have scheduled lasix titrated upwards towards to home dose 80 mg PO BID -trial of void and remove chou successful on 10/27/18 -continue low sodium diet to no more than 2 grams daily, fluid restriction to 1800 ml daily -Patient should hold off losartan and metolazone until follow up with primary care doctor with lab checks of renal function and serum potassium levels -outpatient cardiology appointment (5) Atrial fibrillation, chronic: (not on Coumadin due to concerns for GI bleed in the past) -continue aspirin -Patient should stop diltiazem as home as she has been transitioned to metoprolol succinate 25 mg BID with spirolactone 12.5 mg daily -Patient may continue home dose digoxin (6) DM type 2 (diabetes mellitus, type 2): 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 hbA1c 7 -hold Tradjenta and glimepiride while inpatient; Lantus/NovoLog per protocol while inpatient -patient can resume home diabetes medications on discharge (7) CKD (chronic kidney disease) stage 3, GFR 30-59 ml/min: renal function stable Hypokalemia secondary to diuretics -was treated with oral and IV potassium supplements in the hospital (8) Iron deficiency anemia: -had IV Venofer infusion on 10/18 following with nephrology -Recent outpatient upper GI colonoscopy was performed on 10/04/18 unrevealing for blood loss, Per family plan for outpatient internal capsule study -continue oral iron supplements (9) Hypertension: -blood pressure controlled off Losartan while inpatient -Patient should hold off losartan and metolazone until follow with primary care doctor with lab checks of renal function and serum potassium levels (10) THIERNO (obstructive sleep apnea): -baseline oxygen use is 5 liters/min -encouraged to use BIPAP as needed -Patient has prescriptions to increase home oxygen from 5 liters/min to 7 liters/min and should maintain oxygen saturation between 88 to 92% (11) DVT prophylaxis: SCDS/TEDS Patient's son Sridhar [phone] at the bedside and also provided phone number for patient's daughter Zuleima [phone] Discharge Diagnosis Acute hypoxic respiratory failure secondary to occluded airways and expressing compression with pleural effusion. Recurrent pleural effusion right-sided. 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 Acute on Chronic Diastolic congestive heart failure Aortic Stenosis Atrial fibrillation, chronic CKD (chronic kidney disease) stage 3, GFR 30-59 ml/min Type 2 diabetes mellitus with correction current of insulin Discharge to home Patient has prescriptions to increase home oxygen from 5 liters/min to 7 liters/min and should maintain oxygen saturation between 88 to 92% Patient should stop diltiazem as home as she has been transitioned to metoprolol succinate 25 mg BID with spirolactone 12.5 mg daily Patient may continue home dose digoxin Patient should hold off losartan and metolazone until follow with primary care doctor with lab checks of renal function and serum potassium levels Patient will also need follow Chest X ray with primary care doctor for the right lung pleural effusion that had fluid removed for pleural effusion with bronchoscopy on 10/24/18 The fluid from the pleural effusion is not infectious and not malignancy - The pulmonary physician did start the patient on Augmentin 500 mg BID since 10/26/18 because the presence Haemo.influ betalactamase neg from . Continue Augmentin for 7 more days Albuterol inhaler also prescribed. Recommend to primary care physician that patient should be referred to a pulmonary clinic as outpatient for termite control representative management of respiratory issues 10/31/2018 1:40 PM Provider Cami Gilliam MD Department General Internal Medicine [facility] 11/22/2018 3:00 PM Provider Renzo León PA-C Department Cardiology, [facility] 12/06/2018 12:00 PM Provider Marlin Garces MD Department General Internal Medicine [employer] CHF instructions Call 911 and go to the Emergency Room if: * You have tightness or pain in your chest that does not go away with rest or Nitroglycerin * You are very short of breath even with rest Call your doctor if any of the following symptoms or problems start or get worse: * Shortness of breath or difficulty breathing * Wake up at night short of breath * Chest pain * Cough * Swelling of your hands, fee, or legs * More fatigued or tired with your normal activity * Palpitations - sudden fast heart beats WEIGHT * Weigh yourself every morning after using the bathroom. * Use the same scale. * Wear the same amount of clothing. * Write your weight down on your chart. * Call your doctor if you gain more than 2-3 pounds in 1-2 days. MEDICATIONS * Use this discharge instruction sheet for instructions. * Take your medications at the time your doctor ordered. * Do not skip a dose of your medicines. * If you miss a dose of medicine, take as soon as possible, but DO NOT DOUBLE A DOSE. * Read your medicine information when you get home. * Know all of the side effects of your medicine. * Call your doctor's office if you have any side effects. * Be sure all of your doctors know what medicine and herbs you take (including cold, flu, and herbal medicine). * Pain Medicine: If you do not get relief from your pain, please call your doctor for help. Take the following with you to your follow-up doctor appointments: * Weight Chart * Medication List * List of questions Do not drink excessive alcohol, beer or wine. Subjective Patient with oxygen requirements to 7 liters.min with activity. Today is the first time she is really moving while in hospital because she has been sedentary in the hospital and did not allow for chou removal yesterday. Chou removed today and trial of void completed sucessfully. Patient and patient affirms that she feels comfortable for hospital discharge. patient denies distress. no chest pain. no abdomen pain. no vomiting. we discussed discharge plans at length Physical Exam Constitutional: comfortable Eyes: PERRL, conjunctivae normal, anicteric sclerae EOM intact bilaterally ENMT: external ear and nose normal, oropharynx normal Respiratory: normal respiratory effort (right lower lobe with diminished lung sounds) Cardiovascular: Rate/Rhythm: regular rate Heart Sounds: + murmur Extremities: + edema Gastrointestinal (Abdomen): normal bowel sounds, soft, nontender, no hepatosplenomegaly Musculoskeletal: Head/Neck/Chest: normocephalic and head atraumatic Neurologic: PERRL, EOMI, accommodation nl, no face palsy, no dysarthria CN's II-XI intact bilaterally Psychiatric: A+Ox3, euthymic affect Results & Data Vital Signs (Past 12 Hours) Vital Signs Temp Pulse Pulse Pulse Resp BP BP 10/27/18 11:20 36.7 C 53 L 62 20 114/73 129/68 10/27/18 10:40 36.7 C 62 20 114/73 10/27/18 08:02 65 10/27/18 07:50 36.7 C 67 20 130/72 10/27/18 03:37 36.5 C 65 20 129/68 10/27/18 01:53 62 26 H 10/27/18 00:00 70 Pulse Ox 10/27/18 11:20 93 10/27/18 10:40 93 10/27/18 08:02 10/27/18 07:50 89 L 10/27/18 03:37 90 10/27/18 01:53 90 10/27/18 00:00
--- NOTE | 2018-10-27 11:57 | Discharge Summary ---
Date of Service October 27, 2018 Admission HPI Per Admitting Provider This is a 82 yr old F who has a significant PMH of Chronic Respiratory Failure on 5L of O2, Chronic Diastolic CHF, Chronic Afib of OAC due to anemia and falls, HTN, HLD, T2DM, CKD -3, venous stasis dermatitis, iron def anemia who presents to [facility] ED via EMS secondary to hypoxia. Patient called son in law this morning to help her with bipap placement. O2 noted to be in 60s; therefore EMS called. History mostly provided by Daughter given pt on bipap. She notes increased weight gain 20-30lbs in past 2-3 months. Around june weight was 225-230. Noted increased weight gain, lower extremity edema, SOB. 2-3 weeks ago patient lasix increased from lasix 80mg in a.m. and 40mg in pm to 80mg bid; however her metolazone was stopped about a month ago given concerns for her renal function. Diuretics adjusted by nephrology [facility]. Due to increased weight gain and swelling daughter gave pt dose of 2.5 metolazone Tuesday and additional dose Tuesday. Also noted cough x 1 week, moist but unable to produce. Increasing SOB at rest and with exertion. Pt sleeps in recliner, unable to lie flat due to orthopnea. Physical decline from baseline. Pt ambulates with walker and is able to do simple adls on own; however, family notes increased weakness and fatigue. Of note pt has known iron def anemia. Has had recent work up by Dr. Ruelas. Had UGIB and Colonoscopy 10/04 essentially unremarkable; except for 6 polyps which were removed, diverticulosis and internal hemorrhoids. Had IV Venofer infusion on 10/18. Patient denies any dizziness, lightheaded, f/c/s, chest pain, hemoptysis, n/v/d, abdominal pain, change in bowel habits. According to family has great appetite and has been trying to limit fluid intake due to fluid accumulation. Admission Exam Per Admitting Provider Gen: Elderly, chronically ill-appearing female, on BiPAP, mild tachypnea, drowsy but responds to verbal stimuli, answers questions approp Head: Normocephalic, Atraumatic Eyes: Sclera normal, no conjunctival injection, PERRLA, EOMI ENT: Gross hearing intact, normal pharynx, mucous membranes dry Neck: supple, no adenopathy, No JVD, no bruit, Resp: Absent breath sounds right lung field, diminished breath sounds left lung field otherwise clear, no wheezes rales or rhonchi noted. Increased respiratory effort. She is on BiPAP. CV: irregular rate, irregular rhythm, no murmur, rub, gallop, or ectopy Abd: Obese abdomen, +BS x 4, soft, nontender, nondistended Musculoskeletal: moves extremities active rom x 4, good seo manager strength Extremities: +2 edema to b/l lower ext extending to proximal thigh Skin: warm, moist, no rash, negative turgor, cap refill < 2sec Neuro: Alert and oriented x 3 to basics, drowsy, cran nerve 2-12 intact grossly : deferred Principal Diagnosis Acute hypoxic respiratory failure secondary to occluded airways and expressing compression with pleural effusion. Recurrent pleural effusion right-sided. 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 Acute on Chronic Diastolic congestive heart failure Aortic Stenosis Atrial fibrillation, chronic CKD (chronic kidney disease) stage 3, GFR 30-59 ml/min Other diagnosis Type 2 diabetes mellitus with mcfp current of insulin Discharge Exam Constitutional comfortable Eyes PERRL, conjunctivae normal, anicteric sclerae EOM intact bilaterally ENMT external ear and nose normal, oropharynx normal Respiratory normal respiratory effort (right lower lobe with diminished lung sounds) Cardiovascular Rate/Rhythm: regular rate Heart Sounds: + murmur Gastrointestinal (Abdomen) normal bowel sounds, soft, nontender, no hepatosplenomegaly Musculoskeletal Head/Neck/Chest: normocephalic and head atraumatic Neurologic PERRL, EOMI, accommodation nl, no face palsy, no dysarthria CN's II-XI intact bilaterally Psychiatric A+Ox3, euthymic affect Discharge Data Allergies Allergy/AdvReac Type Severity Reaction Status Date / Time lisinopril Allergy Mild Cough Verified 10/24/18 10:31 PERFUMES AND DALE Allergy Mild allergy Uncoded 10/24/18 10:31 Consultations 10/24/18 10:45 ED Decision to Admit Stat 10/24/18 11:49 Consult Cardiology Routine 10/24/18 11:51 Consult Case Management - Discharge Planning Routine 10/24/18 14:28 Consult Mutuel Teller Routine Ordered Studies 10/24/18 09:52 CT chest wo con Stat Hospital Course (1) Acute and chronic respiratory failure ([id number]): (2) Bronchial obstruction: (3) Pleural effusion: This is a 82 yr old F who has a significant PMH of Chronic Respiratory Failure on 5L of O2, Chronic Diastolic CHF, Chronic Afib of OAC due to anemia and falls, HTN, HLD, T2DM, CKD -3, venous stasis dermatitis, iron def anemia who presents to [facility] ED via EMS secondary to hypoxia. Patient presented to ED on 10/24/18 with acute hypoxic respiratory failure requiring BiPAP therapy. Chest x- ray revealed right hemithorax opacification. CT of chest revealed right lung collapse secondary to extensive mucus plugging, secretions right bronchial tree, moderate right pleural effusion, moderate cardiomegaly, moderate trace perihepatic ascities. Patient was Admitted to ICU from the ED on 10/24/18 Acute hypoxic respiratory failure secondary to occluded airways and expressing compression with pleural effusion. Recurrent pleural effusion right-sided. 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 Continue Augmentin for 7 more days -serial CXR were done in the hospital and management of CHF as the likely cause of the pleural effusion was done -Patient will also need follow Chest X ray with primary care doctor for the right lung pleural effusion that had fluid removed for pleural effusion with bronchoscopy on 10/24/18 -Albuterol inhaler also prescribed. Recommend to primary care physician that patient should be referred to a pulmonary clinic as outpatient for mcfp management of respiratory issues (4) Acute on chronic diastolic CHF (congestive heart failure): Aortic Stenosis -Patient received Lasix IV 80 mg x 1 in the ED, s/p thoracentesis and bronchoscopy on 10/24/18. -echocardiogram on this admission with newly defined borderline severe aortic stenosis -transferred out of ICU on 10/25/18 -during the transition from ICU to telemetry girard, patient have been getting intermittent oral and IV Lasix -have scheduled lasix titrated upwards towards to home dose 80 mg PO BID -trial of void and remove chou successful on 10/27/18 -continue low sodium diet to no more than 2 grams daily, fluid restriction to 1800 ml daily -Patient should hold off losartan and metolazone until follow up with primary care doctor with lab checks of renal function and serum potassium levels -outpatient cardiology appointment (5) Atrial fibrillation, chronic: (not on Coumadin due to concerns for GI bleed in the past) -continue aspirin -Patient should stop diltiazem as home as she has been transitioned to metoprolol succinate 25 mg BID with spirolactone 12.5 mg daily -Patient may continue home dose digoxin (6) DM type 2 (diabetes mellitus, type 2): 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 hbA1c 7 -hold Tradjenta and glimepiride while inpatient; Lantus/NovoLog per protocol while inpatient -patient can resume home diabetes medications on discharge (7) CKD (chronic kidney disease) stage 3, GFR 30-59 ml/min: renal function stable Hypokalemia secondary to diuretics -was treated with oral and IV potassium supplements in the hospital (8) Iron deficiency anemia: -had IV Venofer infusion on 10/18 following with nephrology -Recent outpatient upper GI colonoscopy was performed on 10/04/18 unrevealing for blood loss, Per family plan for outpatient internal capsule study -continue oral iron supplements (9) Hypertension: -blood pressure controlled off Losartan while inpatient -Patient should hold off losartan and metolazone until follow with primary care doctor with lab checks of renal function and serum potassium levels (10) THIERNO (obstructive sleep apnea): -baseline oxygen use is 5 liters/min -encouraged to use BIPAP as needed -Patient has prescriptions to increase home oxygen from 5 liters/min to 7 liters/min and should maintain oxygen saturation between 88 to 92% (11) DVT prophylaxis: SCDS/TEDS Patient's son Sridhar [phone] at the bedside and also provided phone number for patient's daughter Zuleima [phone] Discharge Diagnosis Acute hypoxic respiratory failure secondary to occluded airways and expressing compression with pleural effusion. Recurrent pleural effusion right-sided. 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 Discharge to home Patient has prescriptions to increase home oxygen from 5 liters/min to 7 liters/min and should maintain oxygen saturation between 88 to 92% Patient should stop diltiazem as home as she has been transitioned to metoprolol succinate 25 mg BID with spirolactone 12.5 mg daily Patient may continue home dose digoxin Patient should hold off losartan and metolazone until follow with primary care doctor with lab checks of renal function and serum potassium levels Patient will also need follow Chest X ray with primary care doctor for the right lung pleural effusion that had fluid removed for pleural effusion with bronchoscopy on 10/24/18 The fluid from the pleural effusion is not infectious and not malignancy - The pulmonary physician did start the patient on Augmentin 500 mg BID since 10/26/18 because the presence Haemo.influ betalactamase neg from . Continue Augmentin for 7 more days Albuterol inhaler also prescribed. Recommend to primary care physician that patient should be referred to a pulmonary clinic as outpatient for mcfp management of respiratory issues 10/31/2018 1:40 PM Provider Cami Gilliam MD Department General Internal Medicine [facility] 11/22/2018 3:00 PM Provider Renzo León PA-C Department Cardiology, [facility] 12/06/2018 12:00 PM Provider Marlin Garces MD Department General Internal Medicine [facility] CHF instructions Call 911 and go to the Emergency Room if: * You have tightness or pain in your chest that does not go away with rest or Nitroglycerin * You are very short of breath even with rest Call your doctor if any of the following symptoms or problems start or get worse: * Shortness of breath or difficulty breathing * Wake up at night short of breath * Chest pain * Cough * Swelling of your hands, fee, or legs * More fatigued or tired with your normal activity * Palpitations - sudden fast heart beats WEIGHT * Weigh yourself every morning after using the bathroom. * Use the same scale. * Wear the same amount of clothing. * Write your weight down on your chart. * Call your doctor if you gain more than 2-3 pounds in 1-2 days. MEDICATIONS * Use this discharge instruction sheet for instructions. * Take your medications at the time your doctor ordered. * Do not skip a dose of your medicines. * If you miss a dose of medicine, take as soon as possible, but DO NOT DOUBLE A DOSE. * Read your medicine information when you get home. * Know all of the side effects of your medicine. * Call your doctor's office if you have any side effects. * Be sure all of your doctors know what medicine and herbs you take (including cold, flu, and herbal medicine). * Pain Medicine: If you do not get relief from your pain, please call your doctor for help. Take the following with you to your follow-up doctor appointments: * Weight Chart * Medication List * List of questions Do not drink excessive alcohol, beer or wine. Total Time Total Time Spent Total Time Spent (In Minutes): 40 minutes Total Time Includes: Examination of the Patient, Discharge Planning, Medication Reconciliation and Communication With Other Providers Discharge Plan Discharge Items Patient Disposition: Home - Self-Care Reason For Visit: ACUTE/CHRONIC RESPIRATORY FAILRE- ACUTE CHF Discharge Diagnosis: Acute hypoxic respiratory failure secondary to occluded airways and expressing compression with pleural effusion. Recurrent pleural effusion right-sided. 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 Acute on Chronic Diastolic congestive heart failure Aortic Stenosis Atrial fibrillation, chronic CKD (chronic kidney disease) stage 3, GFR 30-59 ml/min Type 2 diabetes mellitus with mcfp current of insulin Condition: Fair Discharge Goals: Improve disease control Activity: Resume your previous activity Non-emergency contact: Primary Care Provider Call non-emergency contact if: you have any medication questions Follow-up/Referrals: Marlin Garces MD [Primary Care Provider] - Diet: Carb Consistent or DM2 and Low Sodium (2gm) Fluids: 1800ml (7 cups) Addtl Provider Instructions: Discharge to home Patient has prescriptions to increase home oxygen from 5 liters/min to 7 liters/min and should maintain oxygen saturation between 88 to 92% Patient should stop diltiazem as home as she has been transitioned to metoprolol succinate 25 mg BID with spirolactone 12.5 mg daily Patient may continue home dose digoxin Patient should hold off losartan and metolazone until follow with primary care doctor with lab checks of renal function and serum potassium levels Patient will also need follow Chest X ray with primary care doctor for the right lung pleural effusion that had fluid removed for pleural effusion with bronchoscopy on 10/24/18 The fluid from the pleural effusion is not infectious and not malignancy - The pulmonary physician did start the patient on Augmentin 500 mg BID since 10/26/18 because the presence Haemo.influ betalactamase neg from . Continue Augmentin for 7 more days Albuterol inhaler also prescribed. Recommend to primary care physician that patient should be referred to a pulmonary clinic as outpatient for dedicated intermodal truck driver management of respiratory issues 10/31/2018 1:40 PM Provider Cami Gilliam MD Department General Internal Medicine [facility] 11/22/2018 3:00 PM Provider Renzo León PA-C Department Cardiology, [facility] 12/06/2018 12:00 PM Provider Marlin Garces MD Department General Internal Medicine [facility] CHF instructions Call 911 and go to the Emergency Room if: * You have tightness or pain in your chest that does not go away with rest or Nitroglycerin * You are very short of breath even with rest Call your doctor if any of the following symptoms or problems start or get worse: * Shortness of breath or difficulty breathing * Wake up at night short of breath * Chest pain * Cough * Swelling of your hands, fee, or legs * More fatigued or tired with your normal activity * Palpitations - sudden fast heart beats WEIGHT * Weigh yourself every morning after using the bathroom. * Use the same scale. * Wear the same amount of clothing. * Write your weight down on your chart. * Call your doctor if you gain more than 2-3 pounds in 1-2 days. MEDICATIONS * Use this discharge instruction sheet for instructions. * Take your medications at the time your doctor ordered. * Do not skip a dose of your medicines. * If you miss a dose of medicine, take as soon as possible, but DO NOT DOUBLE A DOSE. * Read your medicine information when you get home. * Know all of the side effects of your medicine. * Call your doctor's office if you have any side effects. * Be sure all of your doctors know what medicine and herbs you take (including cold, flu, and herbal medicine). * Pain Medicine: If you do not get relief from your pain, please call your doctor for help. Take the following with you to your follow-up doctor appointments: * Weight Chart * Medication List * List of questions Do not drink excessive alcohol, beer or wine. Prescriptions: New spironolactone 25 mg Tablet 12.5 mg PO DAILY 30 Days Qty: 15 RF: 0 metoprolol succinate 25 mg Tablet Extended Release 24 Hr 25 mg PO BID 30 Days Qty: 60 RF: 0 amoxicillin-pot clavulanate 500-125 mg Tablet 1 tab PO BIDM 7 Days Qty: 14 RF: 0 albuterol sulfate [Ventolin HFA] 90 mcg/actuation Hfa Aerosol Inhaler 2 puff inhalation Q8H PRN (Reason: shortness of breath or wheezing) 30 Days Qty: 1 RF: 0 Continued prenat.vits,maxim,fsh-dmig-ujcny tablet 1 tab PO QAM RF: 0 atorvastatin 40 mg tablet 40 mg PO HS RF: 0 aspirin [Aspirin Low Dose] 81 mg Tablet,Delayed Release (Dr/Ec) 81 mg PO HS RF: 0 glimepiride 2 mg tablet 2 mg PO QAM RF: 0 docusate sodium [Colace] 100 mg Capsule 100 mg PO BID RF: 0 digoxin 125 mcg tablet 62.5 mcg PO QAM RF: 0 bupropion HCl 300 mg tablet extended release 24 hr 300 mg PO QAM RF: 0 furosemide [Lasix] 80 mg tablet 80 mg PO BID Qty: 60 RF: 0 magnesium oxide 400 mg (241.3 mg magnesium) tablet 400 mg PO BID RF: 0 Tradjenta 5 mg Tablet 5 mg PO QAM RF: 0 ferrous sulfate 325 mg (65 mg iron) Tablet 325 mg PO QAM RF: 0 Discontinued metolazone 2.5 mg tablet 2.5 mg PO 3XWK RF: 0 diltiazem HCl 360 mg capsule,extended release 24hr 360 mg PO QAM RF: 0 losartan 25 mg tablet 25 mg PO QAM RF: 0 Stand-Alone Forms: My [facility]/Other Patient Handouts: Diabetes Type 2 Coping Discharge Orders: Discharge Order (Routine); Ordered 10/27/18 Ordered By: Dennis Martins Admission Data Admit Date/Time: 10/24/18 11:39 Attending Provider: Dennis Martins Admit Provider: Naseem Cameron Primary Care Provider: Marlin Garces Other Providers: Naseem Cameron ; Jamal Pak ; Danni Moon Service: Telemetry Other Interventions: Discharge Summary Assessment (RN) Last Done: 10/27/18 11:20
--- NOTE | 2018-10-27 14:21 | Cardiology Progress Note ---
Date of Service October 27, 2018 Assessment & Plan (1) Acute on chronic diastolic CHF (congestive heart failure): Patient has initially responded to thoracentesis and bronchoscopy removing mucous plug. Clinical history notable for gradual increase in the abdominal bloating edema multifactorial etiology with recent reduction in diuretic dosing (discontinuation of metolazone), worsening anemia Course was complicated by underlying medical issues including hypoventilation syndrome renal insufficiency chronic respiratory issues. Now with newly defined borderline severe aortic stenosis We will expect patient to require resumption of diuretic dosing as clinical course progresses Furosemide has been restarted with good response. Spironolactone will be added at 12.5 mill grams p.o. daily May ultimately need to reduce furosemide (2) Acute and chronic respiratory failure ([id number]): As above Will require chronic O2 and BiPAP supplementation (3) CKD (chronic kidney disease) stage 3, GFR 30-59 ml/min: Stable initially (4) Bronchial obstruction: (5) Atrial fibrillation, chronic: Switched to Toprol with good rate control intolerance (6) THIERNO (obstructive sleep apnea): (7) Aortic stenosis: Borderline severe with preserved LV systolic function Subjective Patient seen and examined, chart, telemetry reviewed. Slowly improving sitting out of bed in wheelchair O2 saturations are under better control Patient had brisk diuresis overnight weight down 3 kg from admission Physical Exam Constitutional: + obese; no acute distress Eyes: PERRL, conjunctivae normal, anicteric sclerae ENMT: external ear and nose normal, oropharynx normal Neck: + thick neck Respiratory: Auscultation: + diminished lung sounds and + crackles Cardiovascular: Rate/Rhythm: + irregularly irregular Heart Sounds: normal S1, normal S2 and + murmur (Grade 3/6 systolic murmur right upper sternal border no diastolic murmur) Extremities: + edema (1+ lower extremity) Gastrointestinal (Abdomen): normal bowel sounds, soft, nontender, no hepatosplenomegaly Musculoskeletal: no cyanosis or clubbing, extremities motor strength 5/5 Skin: no rashes, warm and dry Results & Data Vital Signs (Past 12 Hours) Vital Signs Temp Pulse Pulse Pulse Resp BP BP 10/27/18 11:20 36.7 C 53 L 62 20 114/73 129/68 10/27/18 10:40 36.7 C 62 20 114/73 10/27/18 08:02 65 10/27/18 07:50 36.7 C 67 20 130/72 10/27/18 03:37 36.5 C 65 20 129/68 Pulse Ox 10/27/18 11:20 93 10/27/18 10:40 93 10/27/18 08:02 10/27/18 07:50 89 L 10/27/18 03:37 90 Laboratory Results Laboratory Results - last 24 hr 10/26/18 10/26/18 10/26/18 11:12 16:03 20:29 Sodium Potassium Chloride Carbon Dioxide Anion Gap BUN Creatinine Est Cr Clr Drug Dosing Est GFR ( Amer) Est GFR (Non-Af Amer) BUN/Creatinine Ratio Glucose POC Glucose 142 H 147 H 167 H Lactate Calcium 10/27/18 10/27/18 10/27/18 07:01 07:01 07:25 Sodium 143 Potassium 3.4 L Chloride 94 L Carbon Dioxide 49 H* Anion Gap 0 L BUN 27 H Creatinine 1.05 Est Cr Clr Drug Dosing 49.5 Est GFR ( Amer) 57.3 Est GFR (Non-Af Amer) 49.4 BUN/Creatinine Ratio 25.4 H Glucose 135 H POC Glucose 141 H Lactate 0.9 Calcium 9.5 10/27/18 11:29 Sodium Potassium Chloride Carbon Dioxide Anion Gap BUN Creatinine Est Cr Clr Drug Dosing Est GFR ( Amer) Est GFR (Non-Af Amer) BUN/Creatinine Ratio Glucose POC Glucose 161 H Lactate Calcium
== END 2018-10-27 13:10 | disposition home or self-care (01) | DRG 166 ==
LOC: ED 08:49 → 1E 11:39 → 2S 10-25 14:35